=== PATIENT | female | born 1945 | race Caucasian/White ===

== ENCOUNTER 2016-09-19 09:17 | Day surgery (SDC) | payer OTHER ==
[2016-09-19] MEDS ORDERED: D5 LR 1000 ML 1,000 ML IV ONE (09:50)
[2016-09-19] MEDS ORDERED: DIPRIVAN VIAL 20 ML ONE (11:05)
[2016-09-19 14:17] VITALS: BP 138/70
== END 2016-09-19 11:40 | disposition home or self-care (01) ==
LOC: SURG1 09:17
PROVIDERS: ATTEND Internal Medicine Gastroenterology
PROC: 0DB88ZX Excision of Small Intestine, Via Natural or Artificial Opening Endoscopic, Diagnostic (ICD-10-PCS; principal; 2016-09-19 12:30)
PROC: 0DB68ZX Excision of Stomach, Via Natural or Artificial Opening Endoscopic, Diagnostic (ICD-10-PCS; principal; 2016-09-19 12:30)
PROC: 0DJ08ZZ Inspection of Upper Intestinal Tract, Via Natural or Artificial Opening Endoscopic (ICD-10-PCS; principal; 2016-09-19 12:30)
PROC: 0D757ZZ Dilation of Esophagus, Via Natural or Artificial Opening (ICD-10-PCS; principal; 2016-09-19 12:30)
DX: R13.19 Other dysphagia (principal); R10.13 Epigastric pain; K20.8 Other esophagitis; K31.89 Other diseases of stomach and duodenum; K22.2 Esophageal obstruction; K22.4 Dyskinesia of esophagus
CPT/HCPCS: 99100; A4217; J3490; J7120

== ENCOUNTER → 2017-03-14 | Outpatient (CLI) | payer OTHER ==
--- NOTE | 2017-03-14 13:56 | CT ---
HISTORY: Headaches, unsteady gait common dizziness. Patient states she was in a rectus pes Friday. Rubens segal states [facility] Patient has bruising to her forehead region. Study: CT brain without contrast Comparison: No priors Technique: Multiple axial images of the brain were obtained from the skull base to the vertex without administra tion of IV contrast. Coronal and sagittal images are also reviewed. Dose reduction techniques utilize d automatic exposure control. Findings: No acute intraparenchymal hemorrhage or mass can be identified. No extra-axial fluid collections are seen. No alteration in the attenuation of the brain parenchyma can be identified to suggest acute o r subacute ischemic change. The ventricular system is symmetric and nondilated. There is chronic pe riventricular white matter disease observed and age-appropriate generalized atrophy. IMPRESSION: 1. No acute intracranial process can be identified. 2. Chronic periventricular white matter disease likely on the basis of small vessel ischemic change. 3. Age-appropriate atrophic changes are seen. Reported By:
== END | disposition home or self-care (01) | DRG 103 ==
LOC: RAD 12:41
PROVIDERS: ATTEND Nurse Practitioner Family
DX: R51 Headache (principal); S09.8XXA Other specified injuries of head, initial encounter; X58.XXXA Exposure to other specified factors, initial encounter; R26.89 Other abnormalities of gait and mobility; R42 Dizziness and giddiness; H53.8 Other visual disturbances
CPT/HCPCS: 70450

== ENCOUNTER 2017-12-01 11:45 | Observation (INO) ==
[2017-12-01 15:19] VITALS: BMI 25.9
[2017-12-01 15:22] LABS: BASOPHILS # (AUTO) 0.1 X10^3/uL (0.0-0.1); EOSINOPHILS # (AUTO) 0.2 x10^3/uL (0.0-0.2); EOSINOPHILS % (AUTO) 2.5 % (0.9-2.9); HEMATOCRIT 38.4 % (36.0-47.0); HEMOGLOBIN 12.9 g/dL (12.0-16.0); LYMPHOCYTES # (AUTO) 2.6 X10^3/uL (1.3-2.9); LYMPHOCYTES % (AUTO) 36.4 % (21.0-51.0); MEAN CORPUSCULAR HEMOGLOBIN 26.9 pg (27.0-34.0); MEAN CORPUSCULAR HGB CONC 33.6 g/dL (33.0-35.0); MEAN CORPUSCULAR VOLUME 80.2 fL (80.0-100.0); MEAN PLATELET VOLUME 7.6 fL (7.4-11.0); MONOCYTES # (AUTO) 0.6 x10^3/uL (0.3-0.8); MONOCYTES % (AUTO) 8.4 % (0.0-13.0); NEUTROPHILS # (AUTO) 3.6 x10^3/uL (2.2-4.8); NEUTROPHILS % (AUTO) 51.7 % (42.0-75.0); PLATELET COUNT 204 X10^3/uL (150.0-450.0); RED BLOOD COUNT 4.79 X10^6/uL (3.5-5.4); RED CELL DISTRIBUTION WIDTH 15.5 % (11.6-16.5)
[2017-12-01] MEDS: ASPIRIN EC 81 MG PO SCH (15:39)
[2017-12-01] MEDS: PROTONIX INJ 40 MG VIAL IVP SCH ×2 (15:39→21:18)
[2017-12-01] MEDS: NS 1000 ML 1,000 ML IV SCH (15:40)
[2017-12-01 15:45] LABS: ALANINE AMINOTRANSFERASE 22 Units/L (12-78); ALBUMIN 3.6 g/dL (3.4-5.0); ALKALINE PHOSPHATASE 63 Units/L (46-116); AMYLASE 36 Units/L (25-115); ASPARTATE AMINO TRANSFERASE 40 Units/L (15-37); BLOOD UREA NITROGEN 11 mg/dL (7-18); CALCIUM 8.4 mg/dL (8.5-10.1); CARBON DIOXIDE 25.6 mmol/L (21-32); CHLORIDE 106 mmol/L (98-107); CKMB % 0.7 % (<4); CREATINE KINASE 178 Units/L (26-192); CREATINE KINASE MB 1.3 ng/mL (0-4.0); CREATININE 1.03 mg/dL (0.55-1.02); LIPASE 96 Units/L (73-393); SODIUM 142 mmol/L (136-145); TOTAL PROTEIN 7.4 g/dL (6.4-8.2); TROPONIN I < 0.02 ng/mL (0-1.5); eGFR NON BLACK RACES 56 (>60)
--- NOTE | 2017-12-01 16:23 | RAD ---
HISTORY: Chest pain Study: Single view of the chest. Comparison: None. Findings: The cardiomediastinal silhouette is normal. No focal consolidations, pleural effusions or pneumothora x. Osseous structures demonstrate no acute abnormality. IMPRESSION: 1. No acute cardiopulmonary process. Reported By:
[2017-12-01 17:26] LABS: BILIRUBIN,URINE NEGATIVE (NEGATIVE); BLOOD/HEMOGLOBIN,URINE NEGATIVE (NEGATIVE); GLUCOSE, URINE NEGATIVE (NEGATIVE); KETONES,URINE NEGATIVE (NEGATIVE); LEUKOCYTE ESTERASE ,URINE 2+ (NEGATIVE); NITRITES,URINE NEGATIVE (NEGATIVE); PROTEIN,URINE NEGATIVE (NEGATIVE); UROBILINOGEN,URINE NORMAL (NORMAL)
[2017-12-01 17:35] LABS: APPEARANCE,URINE CLEAR (CLEAR); BACTERIA,URINE NEGATIVE /HPF (NEGATIVE); COLOR,URINE YELLOW (YELLOW); RBC,URINE 0-2 /HPF (NONE SEEN); SQUAMOUS EPITHELIAL CELL,UR RARE /HPF (NEGATIVE)
[2017-12-01 17:36] LABS: MUCUS,URINE RARE /HPF (NEGATIVE)
[2017-12-01 19:46] LABS: CKMB % 0.7 % (<4); CREATINE KINASE 166 Units/L (26-192); CREATINE KINASE MB 1.1 ng/mL (0-4.0); TROPONIN I < 0.02 ng/mL (0-1.5)
[2017-12-01] MEDS ORDERED: CRESTOR TAB 10 MG PO SCH (21:00)
[2017-12-01] MEDS ORDERED: NEURONTIN CAP 100 MG PO SCH (21:00)
[2017-12-01] MEDS ORDERED: SINGULAIR TAB 10 MG PO SCH (21:00)
[2017-12-01] MEDS ORDERED: AMBIEN PO SCH (21:00)
[2017-12-01] MEDS: XANAX PO SCH ×2 (21:18→21:19)
[2017-12-01 23:26] LABS: CKMB % 0.7 % (<4); CREATINE KINASE 152 Units/L (26-192); CREATINE KINASE MB < 1.0 ng/mL (0-4.0); TROPONIN I < 0.02 ng/mL (0-1.5)
[2017-12-02] MEDS: NS 1000 ML 1,000 ML IV SCH (03:38)
[2017-12-02 05:56] LABS: BASOPHILS # (AUTO) 0.1 X10^3/uL (0.0-0.1); BASOPHILS % (AUTO) 1.1 % (0.2-1.0); EOSINOPHILS # (AUTO) 0.1 x10^3/uL (0.0-0.2); EOSINOPHILS % (AUTO) 2.6 % (0.9-2.9); HEMATOCRIT 35.5 % (36.0-47.0); HEMOGLOBIN 11.9 g/dL (12.0-16.0); LYMPHOCYTES # (AUTO) 2.1 X10^3/uL (1.3-2.9); MEAN CORPUSCULAR HEMOGLOBIN 26.8 pg (27.0-34.0); MEAN CORPUSCULAR HGB CONC 33.6 g/dL (33.0-35.0); MEAN CORPUSCULAR VOLUME 79.9 fL (80.0-100.0); MEAN PLATELET VOLUME 7.7 fL (7.4-11.0); MONOCYTES # (AUTO) 0.4 x10^3/uL (0.3-0.8); MONOCYTES % (AUTO) 8.2 % (0.0-13.0); NEUTROPHILS # (AUTO) 2.3 x10^3/uL (2.2-4.8); NEUTROPHILS % (AUTO) 46.1 % (42.0-75.0); PLATELET COUNT 185 X10^3/uL (150.0-450.0); RED BLOOD COUNT 4.44 X10^6/uL (3.5-5.4); RED CELL DISTRIBUTION WIDTH 15.5 % (11.6-16.5)
[2017-12-02 06:01] LABS: ALANINE AMINOTRANSFERASE 15 Units/L (12-78); ALBUMIN 3.3 g/dL (3.4-5.0); ALKALINE PHOSPHATASE 56 Units/L (46-116); ASPARTATE AMINO TRANSFERASE 13 Units/L (15-37); BLOOD UREA NITROGEN 11 mg/dL (7-18); CALCIUM 7.9 mg/dL (8.5-10.1); CHLORIDE 108 mmol/L (98-107); COR CA(FOR HYPOALB) 8.5 mg/dL (8.5-10.1); CREATININE 1.03 mg/dL (0.55-1.02); SODIUM 144 mmol/L (136-145); TOTAL PROTEIN 6.6 g/dL (6.4-8.2); eGFR NON BLACK RACES 56 (>60)
[2017-12-02] MEDS ORDERED: FOLIC ACID TAB 1 MG PO SCH (09:00)
[2017-12-02] MEDS: ASPIRIN EC 81 MG PO SCH (09:00)
[2017-12-02] MEDS: XANAX PO SCH ×2 (09:00→10:10)
[2017-12-02] MEDS ORDERED: ROCEPHIN VIAL 1 GRAM 1 G in NS 100 ML IV + SPIKE MINIBAG* 100 ML IV SCH (09:00)
[2017-12-02] MEDS: PROTONIX INJ 40 MG VIAL IVP SCH (09:00)
[2017-12-02] MEDS ORDERED: SYNTHROID 100 mcg TAB PO SCH (09:00)
[2017-12-02] MEDS ORDERED: TENORMIN PO SCH (09:00)
[2017-12-02 09:55] LABS: CHOL/HDL RATIO 5.9 (0.0-5.0)
[2017-12-02 10:07] VITALS: BP 127/57
--- NOTE | 2017-12-24 00:56 | DR.CARTERS ---
Short Stay Summary - Short Stay Summary for: Short Stay Summary for Date of:: 12/02/17 - Admission Date Date of Admission: 12/01/17 - Discharge Date Discharge Date: 12/02/17 - Admission Diagnoses (1) Chest pain Status: Acute (2) Shortness of breath Status: Acute (3) Essential hypertension Status: Chronic (4) Gastroesophageal reflux disease Status: Chronic - Hospital Course Hospital Course: Ms. Manriquez presented to the hospital as a direct admission with reports of chest pain. Patient reported severe back pain and elevated blood pressure as well. Blood pressure reported at 212/85. Patient admitted to the hospital and placed on continuous satellite project site monitor and NIBP. We obtained serial cardiac enzymes and EKG's. Medical History: Hyperlipidemia, Hypertension, Bronchitis, Gerd, Diverticulitis, UTI's, Back Pain, Hypothyroidism, Anxiety. Medications: Aspirin Ec 81mg po daily, Protonix 40mg IV BID, NS @80ml/hr, Heplock Flush TID, Xanax 0.5mg po BID, Neurontin 200mg po HS, Singulair 10mg po HS, Crestor 20mg po HS, Ambien 10mg po HS. Abnormal Labs: MCH 26.9, Creatinine 1.03, GFR non 56 , Calcium 8.4, AST 40, A/G ratio 0.9. Chest X-Ray: No acute cardiopulmonary process. On day two, patient denied chest pain or shortness of breath. Blood pressure was 127/57. No acute distress was noted. Cardiac enzymes and ekg's wnl. On examination, lungs clear; heart rate regular in rhythm. We planned for discharge. Instructions for medications and follow up were discussed with patient and family, both voiced understanding. Patient discharged home in stable condition with family. - Discharge Medications Discharge Medications: Home Medication List levothyroxine 100 mcg PO DAILY 12/01/17 [History] montelukast 10 mg PO HS 12/01/17 [History] pantoprazole 40 mg PO BID 12/01/17 [History] aspirin [Ecotrin] 324 mg PO DAILY #30 tab 12/02/17 [Rx] cefdinir 300 mg PO Q12H #20 cap 12/02/17 [Rx] rosuvastatin [Crestor] 20 mg PO HS #30 tab 12/02/17 [Rx] Folic Acid 1 mg PO DAILY 12/16/12 atenolol 12.5 mg PO DAILY 12/16/12 zolpidem 10 mg PO HS 12/16/12 alprazolam [Xanax] 1 tab PO BID 07/24/16 gabapentin 2 cap PO HS 07/24/16 Prescriptions: aspirin [Ecotrin] Gabriel Marti cefdinir Gabriel Marti rosuvastatin [Crestor] Gabriel Marti - Discharge Plan Disposition: HOME, SELF-CARE Condition: Stable Prescriptions: aspirin [Ecotrin] 324 mg PO DAILY #30 tab cefdinir 300 mg PO Q12H #20 cap rosuvastatin [Crestor] 20 mg PO HS #30 tab - Follow up/Referrals Follow up/Referrals: BOBBY GALICIA [Primary Care Provider] - 12/09/17 10:00 am - Instructions Instructions: Urinary Tract Infection, Adult, [id number], Nonspecific Chest Pain, [place]-no-Wxet, Hypertension, [id number] Additional Instructions: DIET TOLERATED. ACTIVITY TOLERATED. Forms: Patient Portal
== END 2017-12-02 13:27 | disposition home or self-care (01) ==
LOC: MED/SURG
PROVIDERS: ADMIT Internal Medicine; ATTEND Internal Medicine
DX: I10 Essential (primary) hypertension; R07.89 Other chest pain; N39.0 Urinary tract infection, site not specified; R06.02 Shortness of breath
CPT/HCPCS: 36415; 71010; 71045; 80053; 80061; 81001; 82150; 82550; 82553; 83690; 84484; 85025; 86677; 93005; 94760; A4216; A4222; C9113; G0378; J0696; J7030; J7050

== ENCOUNTER 2018-02-04 11:14 | Inpatient (IN) ==
[2018-02-04 13:09] LABS: BASOPHILS % (AUTO) 0.7 % (0.2-1.0); EOSINOPHILS % (AUTO) 0.6 % (0.9-2.9); HEMATOCRIT 35.5 % (36.0-47.0); HEMOGLOBIN 11.8 g/dL (12.0-16.0); LYMPHOCYTES # (AUTO) 0.8 X10^3/uL (1.3-2.9); LYMPHOCYTES % (AUTO) 12.9 % (21.0-51.0); MEAN CORPUSCULAR HEMOGLOBIN 26.9 pg (27.0-34.0); MEAN CORPUSCULAR HGB CONC 33.4 g/dL (33.0-35.0); MEAN CORPUSCULAR VOLUME 80.7 fL (80.0-100.0); MEAN PLATELET VOLUME 7.5 fL (7.4-11.0); MONOCYTES # (AUTO) 0.5 x10^3/uL (0.3-0.8); MONOCYTES % (AUTO) 7.8 % (0.0-13.0); NEUTROPHILS # (AUTO) 4.8 x10^3/uL (2.2-4.8); PLATELET COUNT 151 X10^3/uL (150.0-450.0); RED BLOOD COUNT 4.39 X10^6/uL (3.5-5.4); RED CELL DISTRIBUTION WIDTH 15.4 % (11.6-16.5); WHITE BLOOD COUNT 6.2 X10^3/uL (3.6-10.0)
[2018-02-04 13:22] LABS: ALANINE AMINOTRANSFERASE 20 Units/L (12-78); ALBUMIN 3.3 g/dL (3.4-5.0); ALKALINE PHOSPHATASE 64 Units/L (46-116); ASPARTATE AMINO TRANSFERASE 22 Units/L (15-37); BLOOD UREA NITROGEN 11 mg/dL (7-18); CALCIUM 8.7 mg/dL (8.5-10.1); CHLORIDE 98 mmol/L (98-107); COR CA(FOR HYPOALB) 9.3 mg/dL (8.5-10.1); COR NA(FOR HYPERGLY) 132 mmol/L (136-145); CREATININE 1.06 mg/dL (0.55-1.02); SODIUM 132 mmol/L (136-145); TOTAL PROTEIN 7.1 g/dL (6.4-8.2); eGFR NON BLACK RACES 54 (>60)
[2018-02-04 13:43] VITALS: BMI 26.6
--- NOTE | 2018-02-04 14:14 | RAD ---
Exam: Chest two views History: 72-year-old female with cough and shortness of breath Comparison: Previous chest radiograph from 12/01/2017. Findings: Overall heart size and pulmonary vasculature are normal. There has been interval development of paren chymal opacity in the left perihilar and basilar region. This may be related atelectasis or possible infiltrate. Remainder the lungs are clear. No significant effusion on either side. Bony thorax is unr emarkable. Impression: Interval development of left perihilar and basilar opacity probably related to either atelectasis or developing pneumonia Reported By:
[2018-02-04] MEDS ORDERED: NS 1/2 1000 ML IV 1,000 ML IV ONE (14:37)
[2018-02-04] MEDS ORDERED: SALINE 3% 15 ML NEB TX ONE (14:49)
[2018-02-04] MEDS: NS 1/2 1000 ML IV 1,000 ML IV SCH (14:51)
[2018-02-04] MEDS: ZOSYN VIAL 4.5 GRAMS IV SCH ×2 (14:51→21:38)
[2018-02-04] MEDS: ROBITUSSIN DM PO SCH ×3 (14:51→21:37)
[2018-02-04] MEDS: ZOFRAN INJ 4 MG VIAL IVP PRN (14:55)
[2018-02-04] MEDS ORDERED: SALINE 3% 15 ML NEB TX NEB ONE (14:58)
[2018-02-04] MEDS ORDERED: NS 100 ML IV + SPIKE MINIBAG* 100 ML IV ONE ×2 (15:00→21:01)
[2018-02-04] MEDS: DUONEB 0.5 MG/3 MG NEB SCH ×2 (17:15→21:30)
[2018-02-04] MEDS: TYLENOL 325 MG TAB PO PRN (17:23)
[2018-02-04] MEDS: TUSSIONEX PENNKINETIC SUSP PO PRN (19:19)
[2018-02-05] MEDS: DUONEB 0.5 MG/3 MG NEB SCH ×6 (00:44→20:29)
[2018-02-05] MEDS ORDERED: NS 1/2 1000 ML IV 1,000 ML IV ONE ×2 (01:51→16:40)
[2018-02-05] MEDS: NS 1/2 1000 ML IV 1,000 ML IV SCH ×2 (01:56→16:57)
[2018-02-05] MEDS ORDERED: NS 100 ML IV + SPIKE MINIBAG* 100 ML IV ONE ×3 (05:14→21:25)
[2018-02-05] MEDS: ZOSYN VIAL 4.5 GRAMS IV SCH ×3 (05:30→23:51)
--- NOTE | 2018-02-05 06:16 | RAD ---
HISTORY: Shortness of breath Study: Chest AP portable Comparison: 02/04/2018 Findings: The heart is within normal limits in size. The pushpa are normal. The aorta is calcified. The right brittany g is clear. Perihilar infiltrate is present on the left likely representing subsegmental atelectasis and pneumonia. It is somewhat improved when compared with the prior examination. No pleural effusions are identified. The bony thorax is unremarkable. IMPRESSION: Slight improvement left perihilar infiltrate/subsegmental atelectasis Reported By:
[2018-02-05 06:36] LABS: BASOPHILS % (AUTO) 0.8 % (0.2-1.0); EOSINOPHILS # (AUTO) 0.1 x10^3/uL (0.0-0.2); EOSINOPHILS % (AUTO) 1.7 % (0.9-2.9); HEMATOCRIT 34.5 % (36.0-47.0); HEMOGLOBIN 11.7 g/dL (12.0-16.0); LYMPHOCYTES # (AUTO) 0.6 X10^3/uL (1.3-2.9); LYMPHOCYTES % (AUTO) 15.7 % (21.0-51.0); MEAN CORPUSCULAR HEMOGLOBIN 27.2 pg (27.0-34.0); MEAN CORPUSCULAR HGB CONC 33.9 g/dL (33.0-35.0); MEAN CORPUSCULAR VOLUME 80.3 fL (80.0-100.0); MEAN PLATELET VOLUME 7.9 fL (7.4-11.0); MONOCYTES # (AUTO) 0.3 x10^3/uL (0.3-0.8); MONOCYTES % (AUTO) 7.6 % (0.0-13.0); NEUTROPHILS # (AUTO) 2.8 x10^3/uL (2.2-4.8); NEUTROPHILS % (AUTO) 74.2 % (42.0-75.0); PLATELET COUNT 139 X10^3/uL (150.0-450.0); RED CELL DISTRIBUTION WIDTH 15.1 % (11.6-16.5); WHITE BLOOD COUNT 3.7 X10^3/uL (3.6-10.0)
[2018-02-05 07:00] LABS: ALANINE AMINOTRANSFERASE 21 Units/L (12-78); ALBUMIN 3.1 g/dL (3.4-5.0); ALKALINE PHOSPHATASE 64 Units/L (46-116); ASPARTATE AMINO TRANSFERASE 35 Units/L (15-37); BLOOD UREA NITROGEN 9 mg/dL (7-18); CALCIUM 8.5 mg/dL (8.5-10.1); CARBON DIOXIDE 26.8 mmol/L (21-32); CHLORIDE 99 mmol/L (98-107); COR CA(FOR HYPOALB) 9.2 mg/dL (8.5-10.1); CREATININE 1.05 mg/dL (0.55-1.02); SODIUM 133 mmol/L (136-145); TOTAL PROTEIN 7.1 g/dL (6.4-8.2); eGFR NON BLACK RACES 55 (>60)
[2018-02-05] MEDS: TYLENOL 325 MG TAB PO PRN ×3 (08:03→23:51)
[2018-02-05] MEDS: ROBITUSSIN DM PO SCH ×4 (08:45→21:22)
[2018-02-05] MEDS ORDERED: FOLIC ACID 1 MG PO SCH (09:45)
[2018-02-05] MEDS ORDERED: LEVOTHYROXINE 100 MCG PO SCH (09:45)
[2018-02-05] MEDS ORDERED: NEURONTIN CAP 100 MG PO SCH (10:00)
[2018-02-05] MEDS: TUSSIONEX PENNKINETIC SUSP PO PRN (10:04)
[2018-02-05] MEDS: SYNTHROID 100 mcg TAB PO SCH (11:05)
[2018-02-05] MEDS: PROTONIX TAB 40 MG PO SCH (11:05)
[2018-02-05] MEDS: TENORMIN PO SCH (11:06)
[2018-02-05] MEDS: FOLIC ACID TAB 1 MG PO SCH (11:07)
[2018-02-05] MEDS: TAMIFLU PO SCH ×2 (11:07→21:23)
[2018-02-05] MEDS: ECOTRIN TAB 325 MG PO SCH (11:08)
[2018-02-05] MEDS: ZOFRAN INJ 4 MG VIAL IVP PRN (19:44)
[2018-02-05] MEDS: NEURONTIN CAP 300 MG PO SCH (21:22)
[2018-02-05] MEDS: SINGULAIR TAB 10 MG PO SCH (21:23)
[2018-02-06] MEDS: DUONEB 0.5 MG/3 MG NEB SCH ×6 (00:56→20:25)
[2018-02-06] MEDS ORDERED: NS 1/2 1000 ML IV 1,000 ML IV ONE ×2 (04:54→18:11)
[2018-02-06] MEDS ORDERED: NS 100 ML IV + SPIKE MINIBAG* 100 ML IV ONE ×2 (04:55→13:32)
[2018-02-06] MEDS: ZOSYN VIAL 4.5 GRAMS IV SCH ×3 (05:19→21:02)
[2018-02-06] MEDS: NS 1/2 1000 ML IV 1,000 ML IV SCH ×2 (05:19→05:29)
--- NOTE | 2018-02-06 06:09 | RAD ---
HISTORY: Shortness of breath Study: Chest AP portable Comparison: 02/05/2018 Findings: The heart remains within normal limits in size. The pushpa are normal. New increased density is present in the right lung apex which could be due to developing subsegmental atelectasis or infiltrate. Ther e is no significant change in the left perihilar infiltrate being followed. No pleural effusions are identified. The bony thorax is unremarkable IMPRESSION: New right upper lobe density likely representing infiltrate versus subsegmental atelectasis No change left perihilar infiltrate Reported By:
[2018-02-06 06:18] LABS: BASOPHILS % (AUTO) 0.7 % (0.2-1.0); EOSINOPHILS % (AUTO) 0.7 % (0.9-2.9); HEMATOCRIT 30.2 % (36.0-47.0); HEMOGLOBIN 10.3 g/dL (12.0-16.0); LYMPHOCYTES # (AUTO) 0.5 X10^3/uL (1.3-2.9); MEAN CORPUSCULAR HEMOGLOBIN 27.3 pg (27.0-34.0); MEAN CORPUSCULAR HGB CONC 34.2 g/dL (33.0-35.0); MEAN PLATELET VOLUME 8.4 fL (7.4-11.0); MONOCYTES # (AUTO) 0.2 x10^3/uL (0.3-0.8); MONOCYTES % (AUTO) 7.3 % (0.0-13.0); NEUTROPHILS # (AUTO) 2.6 x10^3/uL (2.2-4.8); NEUTROPHILS % (AUTO) 76.3 % (42.0-75.0); PLATELET COUNT 117 X10^3/uL (150.0-450.0); RED BLOOD COUNT 3.78 X10^6/uL (3.5-5.4); WHITE BLOOD COUNT 3.3 X10^3/uL (3.6-10.0)
[2018-02-06 06:39] LABS: ALANINE AMINOTRANSFERASE 23 Units/L (12-78); ALBUMIN 2.5 g/dL (3.4-5.0); ALKALINE PHOSPHATASE 63 Units/L (46-116); ASPARTATE AMINO TRANSFERASE 53 Units/L (15-37); BLOOD UREA NITROGEN 7 mg/dL (7-18); CALCIUM 8.2 mg/dL (8.5-10.1); CARBON DIOXIDE 28.2 mmol/L (21-32); CHLORIDE 102 mmol/L (98-107); COR CA(FOR HYPOALB) 9.4 mg/dL (8.5-10.1); CREATININE 0.94 mg/dL (0.55-1.02); SODIUM 136 mmol/L (136-145); TOTAL PROTEIN 6.1 g/dL (6.4-8.2); eGFR NON BLACK RACES > 60 (>60)
[2018-02-06] MEDS: SYNTHROID 100 mcg TAB PO SCH (07:06)
[2018-02-06] MEDS: TUSSIONEX PENNKINETIC SUSP PO PRN ×2 (07:07→20:30)
[2018-02-06] MEDS: TYLENOL 325 MG TAB PO PRN (08:54)
[2018-02-06] MEDS: TENORMIN PO SCH (08:55)
[2018-02-06] MEDS: ECOTRIN TAB 325 MG PO SCH (08:55)
[2018-02-06] MEDS: PROTONIX TAB 40 MG PO SCH (08:55)
[2018-02-06] MEDS: FOLIC ACID TAB 1 MG PO SCH (08:55)
[2018-02-06] MEDS: ROBITUSSIN DM PO SCH ×4 (08:56→21:00)
[2018-02-06] MEDS: TAMIFLU PO SCH ×2 (08:56→21:01)
[2018-02-06] MEDS: SOLU-Medrol 40 MG VIAL IVP SCH ×3 (11:23→21:02)
[2018-02-06] MEDS: TYLENOL 325 MG TAB PO SCH ×2 (13:34→21:01)
--- NOTE | 2018-02-06 16:17 | DR.UPDATE ---
H&P Update History and Physical Update: WAS SEEN IN THE OFFICE TODAY. A H&P WAS COMPLETED PRIOR TO ADMISSION. PATIENT HAS BEEN SEEN AND EXAMINED WITH NO CHANGES NOTED TO H&P. Changes noted: NO Yes with the following:
--- NOTE | 2018-02-06 16:19 | PCM.PROG ---
Progress Note - Progress Note for Day of Date of Exam: 02/05/18 - Subjective Subjective: WAS ADMITTED FOR TREATMENT OF PNEUMONIA. TODAY, SHE IS ALERT AND ORIENTED, LYING IN BED ON MORNING ROUNDS. SHE CONTINUES WITH COMPLAINTS OF COUGH, SHORTNESS OF BREATH, FEVER, AND GENERALIZED WEAKNESS. STAFF REPORTS THAT TEMPERATURE REACHED 101.2 THROUGHOUT THE NIGHT. ON EXAMINATION, HEART IS REGULAR IN RATE AND RHYTHYM. BILATERAL LUNGS ARE NOTED WITH SCATTERED WHEEZING AND RHONCHI THROUGHOUT. ABDOMEN IS ROUND, SOFT, AND NON- TENDER WITH NORMAL BOWEL SOUNDS NOTED IN ALL QUADRANTS. HER VITALS THIS MORNING ARE 101.1-100-20-94%-138/64. LABS WERE OBTAINED. ABNORMAL LAB VALUES INCLUDE THE FOLLOWING: HGB 11.7, HCT 34.5, SODIUM 133, CREATININE 1.05, TOTAL BILIRUBIN 1.20, ALBUMIN 3.1. SPUTUM AND BLOOD CULTURES ARE PENDING. A CHEST XRAY WAS OBTAINED AND REVEALED: Slight improvement left perihilar infiltrate/ subsegmental atelectasis. TODAY, WE WILL START TAMIFLU 75MG PO BID. OTHERWISE, WE WILL CONTINUE IV ANTIBIOTICS, RESPIRATORY TREATMENTS, AND CURRENT PLAN OF CARE. WE PLAN TO FOLLOW UP WITH AM LABS AND CONTINUE TO MONITOR PATIENT. - Past Medical Family Social History Past Med/Fam/Surg Hx: No changes since H&P Allergies: Allergies levofloxacin Adverse Reaction (Verified 12/01/17 14:50) - Review of Systems ROS: No change since H&P - Vital Signs and I&O's Vital Signs: Temperature 98.7 F Pulse Rate [Right Brachial] 87 Pulse Rate 97 Respiratory Rate 20 Blood Pressure [Right Arm] 123/60 Blood Pressure [Left Arm] 128/60 Blood Pressure 127/57 O2 Sat by Pulse Oximetry 91 Intake and Output: Intake & Output 02/04/18 02/05/18 02/06/18 02/07/18 11:59 11:59 11:59 11:59 Intake Total 570 / 570 3030 / 3030 320 / 320 Output Total 0 / 0 Balance 570 / 570 3030 / 3030 320 / 320 - Physical Exam Oriented: Normal Eyes: Normal Ear: Normal Nose: Normal Throat: Normal Respiratory: Generalized, Wheezes, Rhonchi Cardiovascular: Normal : Normal Auscultation: Bowel Sounds: Normal Palpation: Normal Tenderness: Normal Skin: Normal Musculoskeletal: Normal Mood Description: Calm Affect: Normal Speech Pattern: Clear, Appropriate - Laboratory and Diagnostics Result Diagrams: 02/06/18 05:10 02/06/18 05:10 Labs: 02/04/18 12:53 Blood Blood Culture - Preliminary 02/04/18 12:46 Blood Blood Culture - Preliminary 02/04/18 15:26 Sputum - Expectorated Sputum Sputum Culture - Final 02/04/18 15:26 Sputum - Expectorated Sputum - Final Laboratory WBC 3.3 X10^3/uL (3.6-10.0) L 02/06/18 05:10 RBC 3.78 X10^6/uL (3.5-5.4) 02/06/18 05:10 Hgb 10.3 g/dL (12.0-16.0) L 02/06/18 05:10 Hct 30.2 % (36.0-47.0) L 02/06/18 05:10 MCV 80.0 fL (80.0-100.0) 02/06/18 05:10 MCH 27.3 pg (27.0-34.0) 02/06/18 05:10 MCHC 34.2 g/dL (33.0-35.0) 02/06/18 05:10 RDW 15.0 % (11.6-16.5) 02/06/18 05:10 Plt Count 117 X10^3/uL (150.0-450.0) L 02/06/18 05:10 MPV 8.4 fL (7.4-11.0) 02/06/18 05:10 Neut % (Auto) 76.3 % (42.0-75.0) H 02/06/18 05:10 Lymph % (Auto) 15.0 % (21.0-51.0) L 02/06/18 05:10 [place] % (Auto) 7.3 % (0.0-13.0) 02/06/18 05:10 Eos % (Auto) 0.7 % (0.9-2.9) L 02/06/18 05:10 Baso % (Auto) 0.7 % (0.2-1.0) 02/06/18 05:10 Neut # (Auto) 2.6 x10^3/uL (2.2-4.8) 02/06/18 05:10 Lymph # (Auto) 0.5 X10^3/uL (1.3-2.9) L 02/06/18 05:10 [place] # (Auto) 0.2 x10^3/uL (0.3-0.8) L 02/06/18 05:10 Eos # (Auto) 0.0 x10^3/uL (0.0-0.2) 02/06/18 05:10 Baso # (Auto) 0.0 X10^3/uL (0.0-0.1) 02/06/18 05:10 Absolute Nucleated RBC 0.1 /100WBC 02/06/18 05:10 Sodium 136 mmol/L (136-145) 02/06/18 05:10 Corrected Sodium TNP 02/06/18 05:10 Potassium 3.2 mmol/L (3.5-5.1) L 02/06/18 05:10 Chloride 102 mmol/L (98-107) 02/06/18 05:10 Carbon Dioxide 28.2 mmol/L (21-32) 02/06/18 05:10 BUN 7 mg/dL (7-18) 02/06/18 05:10 Creatinine 0.94 mg/dL (0.55-1.02) 02/06/18 05:10 Est GFR (MDRD) Af Amer > 60 (>60) 02/06/18 05:10 Est GFR (MDRD) Non-Af > 60 (>60) 02/06/18 05:10 Glucose 98 mg/dL (65-99) 02/06/18 05:10 Calcium 8.2 mg/dL (8.5-10.1) L 02/06/18 05:10 Corrected Calcium 9.4 mg/dL (8.5-10.1) 02/06/18 05:10 Total Bilirubin 1.10 mg/dL (0.2-1.0) H 02/06/18 05:10 AST 53 Units/L (15-37) H 02/06/18 05:10 ALT 23 Units/L (12-78) 02/06/18 05:10 Alkaline Phosphatase 63 Units/L (46-116) 02/06/18 05:10 Total Protein 6.1 g/dL (6.4-8.2) L 02/06/18 05:10 Albumin 2.5 g/dL (3.4-5.0) L 02/06/18 05:10 Globulin 3.6 g/dL (2.5-4.5) 02/06/18 05:10 Albumin/Globulin Ratio 0.7 Ratio (1.1-2.1) L 02/06/18 05:10 Influenza Type A (PCR) Negative (NEGATIVE) 02/04/18 15:26 Influenza Type B (PCR) Negative (NEGATIVE) 02/04/18 15:26 - Plan (1) Pneumonia Status: Acute Qualifiers: Pneumonia type: due to unspecified organism Laterality: left Lung location: unspecified part of lung Qualified Code(s): J18.9 - Pneumonia, unspecified organism Plan: PNEUMONIA PROTOCOL WITH IV ANTIBIOTICS AND RESPIRATORY TREATMENTS, TAMIFLU 75MG PO BID, CONTINUE TO MONITOR
[2018-02-06] MEDS ORDERED: COLACE CAP 100 MG PO PRN (16:48)
[2018-02-06] MEDS: NEURONTIN CAP 300 MG PO SCH (20:59)
[2018-02-06] MEDS: MILK OF MAGNESIA PO SCH (20:59)
[2018-02-06] MEDS: SINGULAIR TAB 10 MG PO SCH (21:00)
--- NOTE | 2018-02-06 21:29 | PCM.PROG ---
Progress Note - Progress Note for Day of Date of Exam: 02/06/18 - Subjective Subjective: WAS ADMITTED FOR TREATMENT OF PNEUMONIA. TODAY, SHE IS ALERT AND ORIENTED, LYING IN BED ON MORNING ROUNDS. SHE REPORTS COMPLAINTS OF INCREASED SHORTNESS OF BREATH, COUGH, FEVER, AND WEAKNESS. SHE CONTINUED WITH FEVER THROUGHOUT THE NIGHT. ON EXAMINATION, HEART IS REGULAR IN RATE AND RHYTHYM. BILATERAL LUNGS ARE NOTED WITH SCATTERED WHEEZING AND RHONCHI THROUGHOUT. ABDOMEN IS ROUND, SOFT, AND NON-TENDER WITH NORMAL BOWEL SOUNDS NOTED IN ALL QUADRANTS. HER VITALS THIS MORNING ARE 100.1-106-22-92%NC-142/67. LABS WERE OBTAINED. ABNORMAL LAB VALUES INCLUDE THE FOLLOWING: WBC 3.3, HGB 10.3 , HCT 30.2, POTASSIUM 3.2, CALCIUM 8.2, TOTAL BILI 1.10, AST 53, TOTAL PROTEIN 6.1, ALBUMIN 2.5. SPUTUM AND BLOOD CULTURES ARE PENDING. A CHEST XRAY WAS OBTAINED AND REVEALED: New right upper lobe density likely representing infiltrate versus subsegmental atelectasis. No change left perihilar infiltrate. TODAY, WE WILL START SOLU-MEDROL 40MG IV Q8H AND TYLENOL 650MG PO TID. OTHERWISE, WE WILL CONTINUE IV ANTIBIOTICS, RESPIRATORY TREATMENTS, AND CURRENT PLAN OF CARE. WE PLAN TO FOLLOW UP WITH AM LABS AND CONTINUE TO MONITOR PATIENT. - Past Medical Family Social History Past Med/Fam/Surg Hx: No changes since H&P Allergies: Allergies levofloxacin Adverse Reaction (Verified 12/01/17 14:50) - Review of Systems ROS: No change since H&P - Vital Signs and I&O's Vital Signs: Temperature 98.2 F Pulse Rate [Right Brachial] 80 Pulse Rate 77 Respiratory Rate 18 Blood Pressure [Right Arm] 130/64 Blood Pressure [Left Arm] 128/60 Blood Pressure 127/57 O2 Sat by Pulse Oximetry 96 Intake and Output: Intake & Output 02/04/18 02/05/18 02/06/18 02/07/18 11:59 11:59 11:59 11:59 Intake Total 570 / 570 3030 / 3030 320 / 320 Output Total 0 / 0 Balance 570 / 570 3030 / 3030 320 / 320 - Physical Exam Oriented: Normal Eyes: Normal Ear: Normal Nose: Normal Throat: Normal Respiratory: Generalized, Wheezes, Rhonchi Cardiovascular: Normal : Normal Auscultation: Bowel Sounds: Normal Palpation: Normal Tenderness: Normal Skin: Normal Musculoskeletal: Normal Mood Description: Calm Affect: Normal Speech Pattern: Clear, Appropriate - Laboratory and Diagnostics Result Diagrams: 02/06/18 05:10 02/06/18 05:10 Labs: 02/04/18 12:53 Blood Blood Culture - Preliminary 02/04/18 12:46 Blood Blood Culture - Preliminary 02/04/18 15:26 Sputum - Expectorated Sputum Sputum Culture - Final 02/04/18 15:26 Sputum - Expectorated Sputum - Final Laboratory WBC 3.3 X10^3/uL (3.6-10.0) L 02/06/18 05:10 RBC 3.78 X10^6/uL (3.5-5.4) 02/06/18 05:10 Hgb 10.3 g/dL (12.0-16.0) L 02/06/18 05:10 Hct 30.2 % (36.0-47.0) L 02/06/18 05:10 MCV 80.0 fL (80.0-100.0) 02/06/18 05:10 MCH 27.3 pg (27.0-34.0) 02/06/18 05:10 MCHC 34.2 g/dL (33.0-35.0) 02/06/18 05:10 RDW 15.0 % (11.6-16.5) 02/06/18 05:10 Plt Count 117 X10^3/uL (150.0-450.0) L 02/06/18 05:10 MPV 8.4 fL (7.4-11.0) 02/06/18 05:10 Neut % (Auto) 76.3 % (42.0-75.0) H 02/06/18 05:10 Lymph % (Auto) 15.0 % (21.0-51.0) L 02/06/18 05:10 [place] % (Auto) 7.3 % (0.0-13.0) 02/06/18 05:10 Eos % (Auto) 0.7 % (0.9-2.9) L 02/06/18 05:10 Baso % (Auto) 0.7 % (0.2-1.0) 02/06/18 05:10 Neut # (Auto) 2.6 x10^3/uL (2.2-4.8) 02/06/18 05:10 Lymph # (Auto) 0.5 X10^3/uL (1.3-2.9) L 02/06/18 05:10 [place] # (Auto) 0.2 x10^3/uL (0.3-0.8) L 02/06/18 05:10 Eos # (Auto) 0.0 x10^3/uL (0.0-0.2) 02/06/18 05:10 Baso # (Auto) 0.0 X10^3/uL (0.0-0.1) 02/06/18 05:10 Absolute Nucleated RBC 0.1 /100WBC 02/06/18 05:10 Sodium 136 mmol/L (136-145) 02/06/18 05:10 Corrected Sodium TNP 02/06/18 05:10 Potassium 3.2 mmol/L (3.5-5.1) L 02/06/18 05:10 Chloride 102 mmol/L (98-107) 02/06/18 05:10 Carbon Dioxide 28.2 mmol/L (21-32) 02/06/18 05:10 BUN 7 mg/dL (7-18) 02/06/18 05:10 Creatinine 0.94 mg/dL (0.55-1.02) 02/06/18 05:10 Est GFR (MDRD) Af Amer > 60 (>60) 02/06/18 05:10 Est GFR (MDRD) Non-Af > 60 (>60) 02/06/18 05:10 Glucose 98 mg/dL (65-99) 02/06/18 05:10 Calcium 8.2 mg/dL (8.5-10.1) L 02/06/18 05:10 Corrected Calcium 9.4 mg/dL (8.5-10.1) 02/06/18 05:10 Total Bilirubin 1.10 mg/dL (0.2-1.0) H 02/06/18 05:10 AST 53 Units/L (15-37) H 02/06/18 05:10 ALT 23 Units/L (12-78) 02/06/18 05:10 Alkaline Phosphatase 63 Units/L (46-116) 02/06/18 05:10 Total Protein 6.1 g/dL (6.4-8.2) L 02/06/18 05:10 Albumin 2.5 g/dL (3.4-5.0) L 02/06/18 05:10 Globulin 3.6 g/dL (2.5-4.5) 02/06/18 05:10 Albumin/Globulin Ratio 0.7 Ratio (1.1-2.1) L 02/06/18 05:10 Influenza Type A (PCR) Negative (NEGATIVE) 02/04/18 15:26 Influenza Type B (PCR) Negative (NEGATIVE) 02/04/18 15:26 - Plan (1) Pneumonia Status: Acute Qualifiers: Pneumonia type: due to unspecified organism Laterality: left Lung location: unspecified part of lung Qualified Code(s): J18.9 - Pneumonia, unspecified organism Plan: PNEUMONIA PROTOCOL WITH IV ANTIBIOTICS AND RESPIRATORY TREATMENTS, TAMIFLU 75MG PO BID, SOLU-MEDROL 40MG IV TID, CONTINUE TO MONITOR
[2018-02-07] MEDS: DUONEB 0.5 MG/3 MG NEB SCH ×6 (00:44→20:55)
[2018-02-07] MEDS: NS 1/2 1000 ML IV 1,000 ML IV SCH ×2 (02:57→11:18)
[2018-02-07] MEDS ORDERED: NS 100 ML IV + SPIKE MINIBAG* 100 ML IV ONE ×3 (05:13→21:36)
[2018-02-07] MEDS: SOLU-Medrol 40 MG VIAL IVP SCH ×3 (05:29→21:46)
[2018-02-07] MEDS: TYLENOL 325 MG TAB PO SCH ×3 (05:29→21:44)
[2018-02-07] MEDS: ZOSYN VIAL 4.5 GRAMS IV SCH ×3 (05:30→21:46)
[2018-02-07 05:49] LABS: ALANINE AMINOTRANSFERASE 29 Units/L (12-78); ALBUMIN 2.6 g/dL (3.4-5.0); ALKALINE PHOSPHATASE 67 Units/L (46-116); ASPARTATE AMINO TRANSFERASE 54 Units/L (15-37); BLOOD UREA NITROGEN 9 mg/dL (7-18); CALCIUM 8.6 mg/dL (8.5-10.1); CARBON DIOXIDE 29.7 mmol/L (21-32); CHLORIDE 103 mmol/L (98-107); COR CA(FOR HYPOALB) 9.7 mg/dL (8.5-10.1); COR NA(FOR HYPERGLY) 142 mmol/L (136-145); CREATININE 1.06 mg/dL (0.55-1.02); SODIUM 141 mmol/L (136-145); TOTAL PROTEIN 6.4 g/dL (6.4-8.2); eGFR NON BLACK RACES 54 (>60)
[2018-02-07] MEDS ORDERED: NS 1/2 1000 ML IV 1,000 ML IV ONE (05:55)
[2018-02-07] MEDS: SYNTHROID 100 mcg TAB PO SCH (06:03)
[2018-02-07] MEDS ORDERED: K-LYTE EFFERVESCENT PO PRN (06:11)
[2018-02-07] MEDS ORDERED: POTASSIUM CHL 40 MEQ/NS 0.45% 500 ML IV PRN (06:11)
[2018-02-07] MEDS ORDERED: POTASSIUM CHL 60 MEQ/NS 0.45% 500 ML IV PRN (06:11)
[2018-02-07] MEDS ORDERED: MAGNESIUM SULFATE 1 GRAM/100 mL PREMIX 1 GM/100 ML BAG IV PRN (06:11)
[2018-02-07] MEDS ORDERED: POTASSIUM CHLORIDE LIQ 20 MEQ UDC PO PRN (06:11)
[2018-02-07] MEDS ORDERED: K-RIDER 10 MEQ/NS 100 ML 10 MEQ/100 ML BAG IV PRN (06:11)
--- NOTE | 2018-02-07 06:32 | RAD ---
Examination: Portable AP chest History: SOB Comparison reference 02/06/2018 Findings: Stable heart size. There is no change in the mild diffuse infiltrates in right upper lobe and left perihilar distribution. No complicating pneumothorax or developing pleural fluid is noted. Impression: No change since 1 day earlier. Reported By:
[2018-02-07 07:17] LABS: BASOPHILS % (AUTO) 0.3 % (0.2-1.0); HEMATOCRIT 29.1 % (36.0-47.0); LYMPHOCYTES # (AUTO) 0.4 X10^3/uL (1.3-2.9); LYMPHOCYTES % (AUTO) 8.9 % (21.0-51.0); MEAN CORPUSCULAR HEMOGLOBIN 27.2 pg (27.0-34.0); MEAN CORPUSCULAR HGB CONC 34.4 g/dL (33.0-35.0); MEAN PLATELET VOLUME 8.3 fL (7.4-11.0); MONOCYTES # (AUTO) 0.2 x10^3/uL (0.3-0.8); MONOCYTES % (AUTO) 4.3 % (0.0-13.0); NEUTROPHILS % (AUTO) 86.5 % (42.0-75.0); PLATELET COUNT 167 X10^3/uL (150.0-450.0); RED BLOOD COUNT 3.68 X10^6/uL (3.5-5.4); RED CELL DISTRIBUTION WIDTH 15.5 % (11.6-16.5); WHITE BLOOD COUNT 4.7 X10^3/uL (3.6-10.0)
[2018-02-07] MEDS: ECOTRIN TAB 325 MG PO SCH (08:55)
[2018-02-07] MEDS: ROBITUSSIN DM PO SCH ×4 (08:55→21:44)
[2018-02-07] MEDS: PROTONIX TAB 40 MG PO SCH (08:55)
[2018-02-07] MEDS: TAMIFLU PO SCH ×2 (08:55→21:45)
[2018-02-07] MEDS: FOLIC ACID TAB 1 MG PO SCH (08:56)
[2018-02-07] MEDS: TENORMIN PO SCH (08:56)
[2018-02-07] MEDS: TUSSIONEX PENNKINETIC SUSP PO PRN ×2 (09:01→22:59)
--- NOTE | 2018-02-07 10:13 | RAD ---
Examination: KUB History: Abdominal pain Comparison reference: Abdomen CT, 08/20/2017 Findings: Nonobstructing intestinal gas pattern. No definite ileus, mass, ascites or visceral enlarge ment. Impression: No acute or specific abnormality demonstrated. Reported By:
[2018-02-07] MEDS: MILK OF MAGNESIA PO SCH (21:44)
[2018-02-07] MEDS: SINGULAIR TAB 10 MG PO SCH (21:45)
[2018-02-07] MEDS: NEURONTIN CAP 300 MG PO SCH (21:45)
--- NOTE | 2018-02-07 21:52 | PCM.PROG ---
Progress Note - Progress Note for Day of Date of Exam: 02/07/18 - Subjective Subjective: WAS ADMITTED FOR TREATMENT OF PNEUMONIA. TODAY, SHE IS ALERT AND ORIENTED, LYING IN BED ON MORNING ROUNDS. SHE REPORTS COMPLAINTS OF SHORTNESS OF BREATH, PERSISTENT COUGH, AND WEAKNESS. SHE WAS AFEBRILE THROUGHOUT THE NIGHT. SHE ALSO REPORTS COMPLAINTS OF CONSTIPATION. ON EXAMINATION, HEART IS REGULAR IN RATE AND RHYTHYM. BILATERAL LUNGS ARE NOTED WITH SCATTERED WHEEZING AND RHONCHI THROUGHOUT. ABDOMEN IS ROUND, SOFT, AND NON- TENDER WITH NORMAL BOWEL SOUNDS NOTED IN ALL QUADRANTS. HER VITALS THIS MORNING ARE 98.7-86-18-92%NC-135/69. LABS WERE OBTAINED. ABNORMAL LAB VALUES INCLUDE THE FOLLOWING: HGB 10.0, HCT 29.1, POTASSIUM 3.3, CREATININE 1.06, GLUCOSE 158, AST 54, ALBUMIN 2.6. SPUTUM AND BLOOD CULTURES ARE PENDING. A CHEST XRAY WAS OBTAINED AND REVEALED: Stable heart size. There is no change in the mild diffuse infiltrates in right upper lobe and left perihilar distribution. No complicating pneumothorax or developing pleural fluid is noted. TODAY, WE WILL OBTAIN A KUB AND ORDER A BOWEL REGIMEN. OTHERWISE, WE WILL CONTINUE IV ANTIBIOTICS, RESPIRATORY TREATMENTS, AND CURRENT PLAN OF CARE. WE PLAN TO FOLLOW UP WITH AM LABS AND CONTINUE TO MONITOR PATIENT. - Past Medical Family Social History Past Med/Fam/Surg Hx: No changes since H&P Allergies: Allergies levofloxacin Adverse Reaction (Verified 12/01/17 14:50) - Review of Systems ROS: No change since H&P - Vital Signs and I&O's Vital Signs: Temperature 97.7 F Pulse Rate [Right Brachial] 79 Pulse Rate 90 Respiratory Rate 20 Blood Pressure [Right Arm] 135/81 Blood Pressure [Left Arm] 128/60 Blood Pressure 127/57 O2 Sat by Pulse Oximetry 91 Intake and Output: Intake & Output 02/05/18 02/06/18 02/07/18 02/08/18 11:59 11:59 11:59 11:59 Intake Total 570 / 570 3030 / 3030 680 / 680 1025 / 1025 Output Total 0 / 0 Balance 570 / 570 3030 / 3030 680 / 680 1025 / 1025 - Physical Exam Oriented: Normal Eyes: Normal Ear: Normal Nose: Normal Throat: Normal Respiratory: Generalized, Wheezes, Rhonchi Cardiovascular: Normal : Normal Auscultation: Bowel Sounds: Normal Tenderness: Normal Skin: Normal Musculoskeletal: Normal Mood Description: Calm Affect: Normal Speech Pattern: Clear, Appropriate - Laboratory and Diagnostics Result Diagrams: 02/07/18 07:00 02/07/18 04:45 Labs: 02/04/18 12:53 Blood Blood Culture - Preliminary 02/04/18 12:46 Blood Blood Culture - Preliminary 02/04/18 15:26 Sputum - Expectorated Sputum Sputum Culture - Final 02/04/18 15:26 Sputum - Expectorated Sputum - Final Laboratory WBC 4.7 X10^3/uL (3.6-10.0) 02/07/18 07:00 RBC 3.68 X10^6/uL (3.5-5.4) 02/07/18 07:00 Hgb 10.0 g/dL (12.0-16.0) L 02/07/18 07:00 Hct 29.1 % (36.0-47.0) L 02/07/18 07:00 MCV 79.0 fL (80.0-100.0) L 02/07/18 07:00 MCH 27.2 pg (27.0-34.0) 02/07/18 07:00 MCHC 34.4 g/dL (33.0-35.0) 02/07/18 07:00 RDW 15.5 % (11.6-16.5) 02/07/18 07:00 Plt Count 167 X10^3/uL (150.0-450.0) 02/07/18 07:00 MPV 8.3 fL (7.4-11.0) 02/07/18 07:00 Neut % (Auto) 86.5 % (42.0-75.0) H 02/07/18 07:00 Lymph % (Auto) 8.9 % (21.0-51.0) L 02/07/18 07:00 [place] % (Auto) 4.3 % (0.0-13.0) 02/07/18 07:00 Eos % (Auto) 0.0 % (0.9-2.9) L 02/07/18 07:00 Baso % (Auto) 0.3 % (0.2-1.0) 02/07/18 07:00 Neut # (Auto) 4.0 x10^3/uL (2.2-4.8) 02/07/18 07:00 Lymph # (Auto) 0.4 X10^3/uL (1.3-2.9) L 02/07/18 07:00 [place] # (Auto) 0.2 x10^3/uL (0.3-0.8) L 02/07/18 07:00 Eos # (Auto) 0.0 x10^3/uL (0.0-0.2) 02/07/18 07:00 Baso # (Auto) 0.0 X10^3/uL (0.0-0.1) 02/07/18 07:00 Absolute Nucleated RBC 0.1 /100WBC 02/07/18 07:00 Sodium 141 mmol/L (136-145) 02/07/18 04:45 Corrected Sodium 142 mmol/L (136-145) 02/07/18 04:45 Potassium 3.3 mmol/L (3.5-5.1) L 02/07/18 04:45 Chloride 103 mmol/L (98-107) 02/07/18 04:45 Carbon Dioxide 29.7 mmol/L (21-32) 02/07/18 04:45 BUN 9 mg/dL (7-18) 02/07/18 04:45 Creatinine 1.06 mg/dL (0.55-1.02) H 02/07/18 04:45 Est GFR (MDRD) Af Amer > 60 (>60) 02/07/18 04:45 Est GFR (MDRD) Non-Af 54 (>60) L 02/07/18 04:45 Glucose 158 mg/dL (65-99) H 02/07/18 04:45 Calcium 8.6 mg/dL (8.5-10.1) 02/07/18 04:45 Corrected Calcium 9.7 mg/dL (8.5-10.1) 02/07/18 04:45 Magnesium 2.6 mg/dL (1.7-2.9) 02/07/18 04:45 Total Bilirubin 0.60 mg/dL (0.2-1.0) 02/07/18 04:45 AST 54 Units/L (15-37) H 02/07/18 04:45 ALT 29 Units/L (12-78) 02/07/18 04:45 Alkaline Phosphatase 67 Units/L (46-116) 02/07/18 04:45 Total Protein 6.4 g/dL (6.4-8.2) 02/07/18 04:45 Albumin 2.6 g/dL (3.4-5.0) L 02/07/18 04:45 Globulin 3.8 g/dL (2.5-4.5) 02/07/18 04:45 Albumin/Globulin Ratio 0.7 Ratio (1.1-2.1) L 02/07/18 04:45 Influenza Type A (PCR) Negative (NEGATIVE) 02/04/18 15:26 Influenza Type B (PCR) Negative (NEGATIVE) 02/04/18 15:26 - Plan (1) Pneumonia Status: Acute Qualifiers: Pneumonia type: due to unspecified organism Laterality: left Lung location: unspecified part of lung Qualified Code(s): J18.9 - Pneumonia, unspecified organism Plan: PNEUMONIA PROTOCOL WITH IV ANTIBIOTICS AND RESPIRATORY TREATMENTS, TAMIFLU 75MG PO BID, SOLU-MEDROL 40MG IV TID, CONTINUE TO MONITOR
[2018-02-07] MEDS: AMBIEN PO SCH (22:58)
[2018-02-08] MEDS: DUONEB 0.5 MG/3 MG NEB SCH ×4 (00:40→12:12)
[2018-02-08] MEDS ORDERED: NS 1/2 1000 ML IV 1,000 ML IV ONE ×2 (04:16→18:22)
[2018-02-08] MEDS ORDERED: NS 100 ML IV + SPIKE MINIBAG* 100 ML IV ONE ×3 (04:18→20:26)
[2018-02-08] MEDS: NS 1/2 1000 ML IV 1,000 ML IV SCH ×3 (04:52→16:50)
[2018-02-08] MEDS: ZOSYN VIAL 4.5 GRAMS IV SCH ×3 (05:59→21:20)
[2018-02-08] MEDS: SOLU-Medrol 40 MG VIAL IVP SCH ×3 (05:59→21:19)
[2018-02-08] MEDS: SYNTHROID 100 mcg TAB PO SCH (05:59)
[2018-02-08] MEDS: TYLENOL 325 MG TAB PO SCH ×3 (05:59→21:19)
[2018-02-08 06:05] LABS: BASOPHILS % (AUTO) 0.1 % (0.2-1.0); EOSINOPHILS % (AUTO) 0.1 % (0.9-2.9); HEMATOCRIT 25.9 % (36.0-47.0); HEMOGLOBIN 9.1 g/dL (12.0-16.0); LYMPHOCYTES # (AUTO) 0.7 X10^3/uL (1.3-2.9); LYMPHOCYTES % (AUTO) 10.8 % (21.0-51.0); MEAN CORPUSCULAR HEMOGLOBIN 27.8 pg (27.0-34.0); MEAN CORPUSCULAR HGB CONC 35.2 g/dL (33.0-35.0); MEAN CORPUSCULAR VOLUME 79.2 fL (80.0-100.0); MEAN PLATELET VOLUME 8.4 fL (7.4-11.0); MONOCYTES # (AUTO) 0.4 x10^3/uL (0.3-0.8); PLATELET COUNT 174 X10^3/uL (150.0-450.0); RED BLOOD COUNT 3.27 X10^6/uL (3.5-5.4); RED CELL DISTRIBUTION WIDTH 15.4 % (11.6-16.5)
[2018-02-08 06:21] LABS: ALANINE AMINOTRANSFERASE 29 Units/L (12-78); ALBUMIN 2.5 g/dL (3.4-5.0); ALKALINE PHOSPHATASE 58 Units/L (46-116); ASPARTATE AMINO TRANSFERASE 48 Units/L (15-37); BLOOD UREA NITROGEN 11 mg/dL (7-18); CALCIUM 8.5 mg/dL (8.5-10.1); CHLORIDE 104 mmol/L (98-107); COR CA(FOR HYPOALB) 9.7 mg/dL (8.5-10.1); COR NA(FOR HYPERGLY) 142 mmol/L (136-145); CREATININE 0.86 mg/dL (0.55-1.02); SODIUM 141 mmol/L (136-145); TOTAL PROTEIN 6.2 g/dL (6.4-8.2); eGFR NON BLACK RACES > 60 (>60)
--- NOTE | 2018-02-08 06:43 | RAD ---
Examination: Portable AP chest History: SOB Comparison reference 02/07/2018 Findings: Heart size is stable. There is persistent minimal left perihilar infiltrate with increasing airspace disease in the right upper lobe. Suggestion of less extensive infiltrate right base as well . No developing pleural fluid seen. Impression: Bilateral pulmonary infiltrates, with interval increase in the right lung since 8. Reported By:
[2018-02-08] MEDS: TENORMIN PO SCH (08:17)
[2018-02-08] MEDS: ROBITUSSIN DM PO SCH ×4 (08:17→21:19)
[2018-02-08] MEDS: ECOTRIN TAB 325 MG PO SCH (08:18)
[2018-02-08] MEDS: PROTONIX TAB 40 MG PO SCH (08:18)
[2018-02-08] MEDS: TAMIFLU PO SCH ×2 (08:18→21:19)
[2018-02-08] MEDS: FOLIC ACID TAB 1 MG PO SCH (08:18)
[2018-02-08] MEDS ORDERED: NS 100 ML IV 100 ML IV ONE (10:06)
[2018-02-08] MEDS: COLACE CAP 100 MG PO SCH ×2 (10:10→21:19)
[2018-02-08] MEDS: MILK OF MAGNESIA PO SCH ×4 (10:11→21:18)
[2018-02-08] MEDS: MIRALAX POWDER (1 DOSE 17 G) PO SCH (10:11)
--- NOTE | 2018-02-08 11:58 | CT ---
HISTORY: Cough, shortness of breath Study: CT chest with IV contrast Comparison: Chest x-ray done 02/08/2018, cardiac CTA done 07/26/2016. Technique: Multiple axial images of the chest were obtained from the thoracic inlet to the upper abdo men during the administration of IV contrast. Coronal and sagittal images are also reviewed. Dose red uction techniques utilized automatic exposure control. Findings: The mediastinum does not demonstrate significant pathological lymphadenopathy. There is no pericardi al effusion observed. The thoracic aorta is normal in its contour without evidence for aneurysmal di latation. Right coronary artery calcifications are again seen. The central pulmonary arterial system does not demonstrate central filling defects to suggest pulmonary emboli. Evaluation of the lung parenchyma reveals patchy bilateral ground-glass opacities. More confluent brittany g opacities are seen in right upper and left lower lobe regions. There are small bilateral pleural ef fusions, larger on the left. There are changes of mild cylindrical bronchiectasis bilaterally.. No p ulmonary nodule or mass can be identified. The bony thorax is unremarkable in its appearance. The v isualized portions of the upper abdomen are grossly unremarkable. IMPRESSION: No evidence of pulmonary embolus or thoracic aortic aneurysm. Patchy bilateral ground-glass opacities with more confluent opacities in right upper and left lower l obe regions. There are bilateral pleural effusions which are small. There is bilateral cylindrical br onchiectasis. Reported By:
[2018-02-08 14:16] LABS: CREATINE KINASE MB 2.6 ng/mL (0-4.0); TROPONIN I < 0.02 ng/mL (0-1.5)
[2018-02-08 14:17] LABS: CKMB % 0.2 % (<4); CREATINE KINASE 1648 Units/L (26-192)
[2018-02-08] MEDS: XOPENEX 1.25 MG/3 ML NEBULE NEB SCH ×2 (16:34→21:23)
[2018-02-08 20:26] LABS: CREATINE KINASE MB 2.7 ng/mL (0-4.0); TROPONIN I < 0.02 ng/mL (0-1.5)
[2018-02-08 20:36] LABS: CKMB % 0.2 % (<4); CREATINE KINASE 1497 Units/L (26-192)
[2018-02-08] MEDS: NEURONTIN CAP 300 MG PO SCH (21:18)
[2018-02-08] MEDS: AMBIEN PO SCH (21:18)
[2018-02-08] MEDS: SINGULAIR TAB 10 MG PO SCH (21:19)
[2018-02-08] MEDS: TUSSIONEX PENNKINETIC SUSP PO PRN (21:20)
[2018-02-09] MEDS ORDERED: NS 100 ML IV + SPIKE MINIBAG* 100 ML IV ONE ×3 (04:46→21:09)
[2018-02-09] MEDS: SOLU-Medrol 40 MG VIAL IVP SCH (05:09)
[2018-02-09] MEDS: TYLENOL 325 MG TAB PO SCH ×3 (05:10→21:43)
[2018-02-09] MEDS: ZOSYN VIAL 4.5 GRAMS IV SCH ×3 (05:11→21:43)
[2018-02-09] MEDS: NS 1/2 1000 ML IV 1,000 ML IV SCH ×2 (06:02→21:41)
[2018-02-09] MEDS: SYNTHROID 100 mcg TAB PO SCH (06:03)
[2018-02-09 06:13] LABS: BASOPHILS % (AUTO) 0.1 % (0.2-1.0); EOSINOPHILS % (AUTO) 0.1 % (0.9-2.9); HEMATOCRIT 24.1 % (36.0-47.0); HEMOGLOBIN 8.3 g/dL (12.0-16.0); LYMPHOCYTES # (AUTO) 0.9 X10^3/uL (1.3-2.9); LYMPHOCYTES % (AUTO) 12.7 % (21.0-51.0); MEAN CORPUSCULAR HEMOGLOBIN 27.4 pg (27.0-34.0); MEAN CORPUSCULAR HGB CONC 34.4 g/dL (33.0-35.0); MEAN CORPUSCULAR VOLUME 79.7 fL (80.0-100.0); MEAN PLATELET VOLUME 8.3 fL (7.4-11.0); MONOCYTES # (AUTO) 0.7 x10^3/uL (0.3-0.8); MONOCYTES % (AUTO) 9.6 % (0.0-13.0); NEUTROPHILS # (AUTO) 5.6 x10^3/uL (2.2-4.8); NEUTROPHILS % (AUTO) 77.5 % (42.0-75.0); PLATELET COUNT 194 X10^3/uL (150.0-450.0); RED BLOOD COUNT 3.02 X10^6/uL (3.5-5.4); RED CELL DISTRIBUTION WIDTH 15.5 % (11.6-16.5); WHITE BLOOD COUNT 7.3 X10^3/uL (3.6-10.0)
--- NOTE | 2018-02-09 06:13 | RAD ---
HISTORY: Shortness of breath Study: Chest AP portable Comparison: 02/08/2018 plain film and chest CT Findings: The heart is enlarged. No congestive heart failure is noted. There is no significant change in the ri ght upper and right lower lobe infiltrates being followed. Slight increase is noted in the left upper lobe infiltrate present. No definite pleural effusions are identified. The bony thorax is unremarkab le. IMPRESSION: No change right upper, right lower lobe infiltrates. Slight increase left upper lobe infiltrate Mild cardiomegaly without congestive heart failure Reported By:
[2018-02-09 06:50] LABS: ALANINE AMINOTRANSFERASE 36 Units/L (12-78); ALBUMIN 2.4 g/dL (3.4-5.0); ALKALINE PHOSPHATASE 55 Units/L (46-116); ASPARTATE AMINO TRANSFERASE 54 Units/L (15-37); BLOOD UREA NITROGEN 14 mg/dL (7-18); CHLORIDE 104 mmol/L (98-107); COR CA(FOR HYPOALB) 9.3 mg/dL (8.5-10.1); CREATININE 0.87 mg/dL (0.55-1.02); SODIUM 140 mmol/L (136-145); TOTAL PROTEIN 5.9 g/dL (6.4-8.2); eGFR NON BLACK RACES > 60 (>60)
[2018-02-09 06:51] LABS: CKMB % 0.2 % (<4); CREATINE KINASE 1152 Units/L (26-192); CREATINE KINASE MB 1.9 ng/mL (0-4.0)
[2018-02-09 06:52] LABS: TROPONIN I < 0.02 ng/mL (0-1.5)
[2018-02-09 07:03] LABS: BAND NEUTROPHILS % 4 % (0-10)
[2018-02-09 07:04] LABS: PLATELET MORPHOLOGY COMMENT NORMAL (NORMAL)
[2018-02-09] MEDS: XOPENEX 1.25 MG/3 ML NEBULE NEB SCH ×5 (07:12→21:38)
[2018-02-09] MEDS ORDERED: XANAX PO ONE (08:12)
[2018-02-09] MEDS: ZOFRAN INJ 4 MG VIAL IVP PRN (08:44)
[2018-02-09 08:58] LABS: ABG BASE EXCESS 14.3 mmol/L (-2.0-2.0); ABG HCO3 38.5 mmol/L (22-26)
[2018-02-09] MEDS: FOLIC ACID TAB 1 MG PO SCH (09:00)
[2018-02-09] MEDS: TAMIFLU PO SCH ×2 (09:00→21:42)
[2018-02-09] MEDS: ECOTRIN TAB 325 MG PO SCH (09:00)
[2018-02-09] MEDS: TENORMIN PO SCH (09:00)
[2018-02-09] MEDS: PROTONIX TAB 40 MG PO SCH (09:00)
[2018-02-09] MEDS: MILK OF MAGNESIA PO SCH ×4 (09:19→21:41)
[2018-02-09] MEDS: ROBITUSSIN DM PO SCH ×4 (09:20→21:41)
[2018-02-09] MEDS: MIRALAX POWDER (1 DOSE 17 G) PO SCH (09:20)
[2018-02-09] MEDS: COLACE CAP 100 MG PO SCH ×2 (09:21→21:42)
[2018-02-09] MEDS: TUSSIONEX PENNKINETIC SUSP PO SCH ×2 (09:31→21:42)
[2018-02-09] MEDS: ALBUMIN HUMAN 25%- 100 ML 100 ML IV SCH (11:03)
[2018-02-09] MEDS: LASIX IVP SCH ×2 (11:03→21:41)
--- NOTE | 2018-02-09 13:28 | PCM.PROG ---
Progress Note - Progress Note for Day of Date of Exam: 02/08/18 - Subjective Subjective: WAS ADMITTED FOR TREATMENT OF PNEUMONIA. TODAY, SHE IS ALERT AND ORIENTED, LYING IN BED ON MORNING ROUNDS. SHE REPORTS COMPLAINTS OF SHORTNESS OF BREATH, PERSISTENT, PRODUCTIVE COUGH, AND WEAKNESS. SHE DESCRIBES SPUTUM BLOOD TINGED. SHE WAS AFEBRILE THROUGHOUT THE NIGHT, BUT REPORTS THAT HER COUGH IS WORSENING. SHE CONTINUES TO DENY A BOWEL MOVEMENT. ON EXAMINATION, HEART IS REGULAR IN RATE AND RHYTHYM. BILATERAL LUNGS ARE NOTED WITH SCATTERED WHEEZING AND RHONCHI THROUGHOUT. ABDOMEN IS ROUND, SOFT, AND NON-TENDER WITH NORMAL BOWEL SOUNDS NOTED IN ALL QUADRANTS. HER VITALS THIS MORNING ARE 98.3-84- 20-90%NC-154/70. LABS WERE OBTAINED. ABNORMAL LAB VALUES INCLUDE THE FOLLOWING: RBC 3.27, HGB 9.1, HCT 25.9, GLUCOSE 136, AST 48, TOTAL PROTEIN 6.2, ALBUMIN 2.5. SPUTUM AND BLOOD CULTURES ARE PENDING. A CHEST XRAY WAS OBTAINED AND REVEALED: Bilateral pulmonary infiltrates, with interval increase in the right lung since 02/07/2018. TODAY, WE WILL OBTAIN A CHEST XT WITH CONTRAST. WE WILL ALSO INCREASE THE FREQUENCY OF MILK OF MAGNESIA. OTHERWISE, WE WILL CONTINUE IV ANTIBIOTICS, RESPIRATORY TREATMENTS, AND CURRENT PLAN OF CARE. WE PLAN TO FOLLOW UP WITH AM LABS AND CONTINUE TO MONITOR PATIENT. - Past Medical Family Social History Past Med/Fam/Surg Hx: No changes since H&P Allergies: Allergies levofloxacin Adverse Reaction (Verified 12/01/17 14:50) - Review of Systems ROS: No change since H&P - Vital Signs and I&O's Vital Signs: Temperature 97.8 F Pulse Rate [Right Brachial] 91 Pulse Rate 85 Respiratory Rate 18 Blood Pressure [Right Arm] 158/69 Blood Pressure [Left Arm] 129/62 Blood Pressure 127/57 O2 Sat by Pulse Oximetry 91 Intake and Output: Intake & Output 02/07/18 02/08/18 02/09/18 02/10/18 11:59 11:59 11:59 11:59 Intake Total 680 / 680 3201 / 3201 2700 / 2700 Balance 680 / 680 3201 / 3201 2700 / 2700 - Physical Exam Oriented: Normal Eyes: Normal Ear: Normal Nose: Normal Throat: Normal Respiratory: Generalized, Wheezes, Rhonchi Cardiovascular: Normal : Normal Auscultation: Bowel Sounds: Normal Palpation: Normal Tenderness: Normal Skin: Normal Musculoskeletal: Normal Mood Description: Calm Affect: Normal Speech Pattern: Clear, Appropriate - Laboratory and Diagnostics Result Diagrams: 02/09/18 04:37 02/09/18 04:37 Labs: 02/09/18 09:17 Sputum - Expectorated Sputum - Final 02/04/18 12:53 Blood Blood Culture - Preliminary 02/04/18 12:46 Blood Blood Culture - Preliminary 02/04/18 15:26 Sputum - Expectorated Sputum Sputum Culture - Final 02/04/18 15:26 Sputum - Expectorated Sputum - Final Laboratory WBC 7.3 X10^3/uL (3.6-10.0) 02/09/18 04:37 RBC 3.02 X10^6/uL (3.5-5.4) L 02/09/18 04:37 Hgb 8.3 g/dL (12.0-16.0) L 02/09/18 04:37 Hct 24.1 % (36.0-47.0) L 02/09/18 04:37 MCV 79.7 fL (80.0-100.0) L 02/09/18 04:37 MCH 27.4 pg (27.0-34.0) 02/09/18 04:37 MCHC 34.4 g/dL (33.0-35.0) 02/09/18 04:37 RDW 15.5 % (11.6-16.5) 02/09/18 04:37 Plt Count 194 X10^3/uL (150.0-450.0) 02/09/18 04:37 Plt Count Comment Adequate (ADEQUATE) 02/09/18 04:37 MPV 8.3 fL (7.4-11.0) 02/09/18 04:37 Neut % (Auto) 77.5 % (42.0-75.0) H 02/09/18 04:37 Lymph % (Auto) 12.7 % (21.0-51.0) L 02/09/18 04:37 [place] % (Auto) 9.6 % (0.0-13.0) 02/09/18 04:37 Eos % (Auto) 0.1 % (0.9-2.9) L 02/09/18 04:37 Baso % (Auto) 0.1 % (0.2-1.0) L 02/09/18 04:37 Neut # (Auto) 5.6 x10^3/uL (2.2-4.8) H 02/09/18 04:37 Lymph # (Auto) 0.9 X10^3/uL (1.3-2.9) L 02/09/18 04:37 [place] # (Auto) 0.7 x10^3/uL (0.3-0.8) 02/09/18 04:37 Eos # (Auto) 0.0 x10^3/uL (0.0-0.2) 02/09/18 04:37 Baso # (Auto) 0.0 X10^3/uL (0.0-0.1) 02/09/18 04:37 Absolute Nucleated RBC 0.1 /100WBC 02/09/18 04:37 Total Counted 100 02/09/18 04:37 Neutrophils % (Manual) 74 % (39-76) 02/09/18 04:37 Band Neutrophils % 4 % (0-10) 02/09/18 04:37 Lymphocytes % (Manual) 15 % (13-43) 02/09/18 04:37 Monocytes % (Manual) 7 % (4-9) 02/09/18 04:37 Plt Morphology Comment Normal (NORMAL) 02/09/18 04:37 RBC Morphology Normal (NORMAL) 02/09/18 04:37 INR Target Range - 02/09/18 10:11 INR 1.05 (0.8-1.3) 02/09/18 10:11 Sample Site Rb 02/09/18 08:46 ABG pH 7.540 (7.35-7.45) H 02/09/18 08:46 ABG pCO2 45.0 mmHg (35.0-45.0) 02/09/18 08:46 ABG pO2 96.0 mmHg (80.0-100.0) 02/09/18 08:46 ABG HCO3 38.5 mmol/L (22-26) H* 02/09/18 08:46 ABG O2 Saturation 98.0 % (90-100) 02/09/18 08:46 ABG Base Excess 14.3 mmol/L (-2.0-2.0) H 02/09/18 08:46 Martin Test Na 02/09/18 08:46 A-a Gradient 104.0 mmHg 02/09/18 08:46 FiO2 36.000 02/09/18 08:46 Blood Gas Comments Malaika abg well-mtf 02/09/18 08:46 Sodium 140 mmol/L (136-145) 02/09/18 04:37 Corrected Sodium TNP 02/09/18 04:37 Potassium 3.5 mmol/L (3.5-5.1) 02/09/18 04:37 Chloride 104 mmol/L (98-107) 02/09/18 04:37 Carbon Dioxide 36.0 mmol/L (21-32) H 02/09/18 04:37 BUN 14 mg/dL (7-18) 02/09/18 04:37 Creatinine 0.87 mg/dL (0.55-1.02) 02/09/18 04:37 Est GFR (MDRD) Af Amer > 60 (>60) 02/09/18 04:37 Est GFR (MDRD) Non-Af > 60 (>60) 02/09/18 04:37 Glucose 97 mg/dL (65-99) 02/09/18 04:37 POC Glucose (mg/dL) 103 mg/dL (65-99) H 02/09/18 06:08 Lactic Acid 1.2 mmol/L (0.4-2.0) 02/09/18 10:11 Calcium 8.0 mg/dL (8.5-10.1) L 02/09/18 04:37 Corrected Calcium 9.3 mg/dL (8.5-10.1) 02/09/18 04:37 Magnesium 2.6 mg/dL (1.7-2.9) 02/07/18 04:45 Total Bilirubin 0.60 mg/dL (0.2-1.0) 02/09/18 04:37 AST 54 Units/L (15-37) H 02/09/18 04:37 ALT 36 Units/L (12-78) 02/09/18 04:37 Alkaline Phosphatase 55 Units/L (46-116) 02/09/18 04:37 Creatine Kinase 1152 Units/L (26-192) H 02/09/18 04:37 CK-MB (CK-2) 1.9 ng/mL (0-4.0) 02/09/18 04:37 CK/CKMB % Calc 0.2 % (<4) 02/09/18 04:37 Troponin I < 0.02 ng/mL (0-1.5) 02/09/18 04:37 Total Protein 5.9 g/dL (6.4-8.2) L 02/09/18 04:37 Albumin 2.4 g/dL (3.4-5.0) L 02/09/18 04:37 Globulin 3.5 g/dL (2.5-4.5) 02/09/18 04:37 Albumin/Globulin Ratio 0.7 Ratio (1.1-2.1) L 02/09/18 04:37 Influenza Type A (PCR) Negative (NEGATIVE) 02/04/18 15:26 Influenza Type B (PCR) Negative (NEGATIVE) 02/04/18 15:26 - Plan (1) Pneumonia Status: Acute Qualifiers: Pneumonia type: due to unspecified organism Laterality: left Lung location: unspecified part of lung Qualified Code(s): J18.9 - Pneumonia, unspecified organism Plan: PNEUMONIA PROTOCOL WITH IV ANTIBIOTICS AND RESPIRATORY TREATMENTS, OBTAIN CHEST CT WITH CONTRAST, TAMIFLU 75MG PO BID, SOLU-MEDROL 40MG IV TID, CONTINUE TO MONITOR
[2018-02-09] MEDS ORDERED: XANAX PO PRN (15:09)
[2018-02-09] MEDS ORDERED: NS 1/2 1000 ML IV 1,000 ML IV ONE (21:07)
[2018-02-09] MEDS: AMBIEN PO SCH (21:41)
[2018-02-09] MEDS: NEURONTIN CAP 300 MG PO SCH (21:41)
[2018-02-09] MEDS: SINGULAIR TAB 10 MG PO SCH (21:41)
[2018-02-09] MEDS ORDERED: TUSSIONEX PENNKINETIC SUSP PO ONE (23:34)
[2018-02-10] MEDS ORDERED: NS 100 ML IV + SPIKE MINIBAG* 100 ML IV ONE (02:36)
[2018-02-10] MEDS: TYLENOL 325 MG TAB PO SCH (05:07)
[2018-02-10] MEDS: ZOSYN VIAL 4.5 GRAMS IV SCH (05:07)
[2018-02-10 06:13] LABS: BASOPHILS % (AUTO) 0.1 % (0.2-1.0); EOSINOPHILS % (AUTO) 0.1 % (0.9-2.9); HEMATOCRIT 23.9 % (36.0-47.0); HEMOGLOBIN 8.1 g/dL (12.0-16.0); LYMPHOCYTES # (AUTO) 1.2 X10^3/uL (1.3-2.9); LYMPHOCYTES % (AUTO) 16.7 % (21.0-51.0); MEAN CORPUSCULAR HEMOGLOBIN 27.5 pg (27.0-34.0); MEAN CORPUSCULAR HGB CONC 33.9 g/dL (33.0-35.0); MEAN CORPUSCULAR VOLUME 81.2 fL (80.0-100.0); MEAN PLATELET VOLUME 8.4 fL (7.4-11.0); MONOCYTES # (AUTO) 0.6 x10^3/uL (0.3-0.8); MONOCYTES % (AUTO) 8.7 % (0.0-13.0); NEUTROPHILS # (AUTO) 5.5 x10^3/uL (2.2-4.8); NEUTROPHILS % (AUTO) 74.4 % (42.0-75.0); PLATELET COUNT 198 X10^3/uL (150.0-450.0); RED BLOOD COUNT 2.95 X10^6/uL (3.5-5.4); RED CELL DISTRIBUTION WIDTH 15.8 % (11.6-16.5); WHITE BLOOD COUNT 7.5 X10^3/uL (3.6-10.0)
[2018-02-10 06:20] LABS: ALANINE AMINOTRANSFERASE 43 Units/L (12-78); ALBUMIN 2.6 g/dL (3.4-5.0); ALKALINE PHOSPHATASE 52 Units/L (46-116); ASPARTATE AMINO TRANSFERASE 50 Units/L (15-37); BLOOD UREA NITROGEN 12 mg/dL (7-18); CALCIUM 8.1 mg/dL (8.5-10.1); CARBON DIOXIDE 38.1 mmol/L (21-32); CHLORIDE 101 mmol/L (98-107); COR CA(FOR HYPOALB) 9.2 mg/dL (8.5-10.1); CREATININE 0.84 mg/dL (0.55-1.02); SODIUM 141 mmol/L (136-145); eGFR NON BLACK RACES > 60 (>60)
--- NOTE | 2018-02-10 06:54 | RAD ---
HISTORY: Shortness of breath Study: Chest AP portable Comparison: 02/09/2018 Findings: The heart is mildly enlarged. No congestive heart failure is noted. Right upper lobe infiltrate is sl ightly improved when compared with the prior examination. Significant improvement is noted in the rig ht lower lobe infiltrate. The left upper lobe infiltrate is unchanged. No definite pleural effusions are identified. The bony thorax is unremarkable. IMPRESSION: Improving right upper and right lower lobe infiltrates No change left upper lobe infiltrate Mild cardiomegaly without congestive heart failure Reported By:
[2018-02-10 07:35] LABS: BAND NEUTROPHILS % 4 % (0-10); PLATELET MORPHOLOGY COMMENT NORMAL (NORMAL)
[2018-02-10] MEDS: SYNTHROID 100 mcg TAB PO SCH (08:18)
[2018-02-10] MEDS: TAMIFLU PO SCH (08:18)
[2018-02-10] MEDS: ECOTRIN TAB 325 MG PO SCH (08:18)
[2018-02-10] MEDS: TENORMIN PO SCH (08:18)
[2018-02-10] MEDS: FOLIC ACID TAB 1 MG PO SCH (08:18)
[2018-02-10] MEDS: PROTONIX TAB 40 MG PO SCH (08:19)
[2018-02-10] MEDS: ALBUMIN HUMAN 25%- 100 ML 100 ML IV SCH (08:19)
[2018-02-10] MEDS: ROBITUSSIN DM PO SCH (08:19)
[2018-02-10] MEDS: XOPENEX 1.25 MG/3 ML NEBULE NEB SCH (08:28)
[2018-02-10] MEDS: MILK OF MAGNESIA PO SCH (10:09)
[2018-02-10] MEDS: COLACE CAP 100 MG PO SCH (10:09)
[2018-02-10] MEDS: MIRALAX POWDER (1 DOSE 17 G) PO SCH (10:09)
[2018-02-10 10:11] VITALS: BP 150/68
--- NOTE | 2018-03-15 15:28 | PCM.PROG ---
Progress Note - Progress Note for Day of Date of Exam: 02/09/18 - Subjective Subjective: WAS ADMITTED FOR TREATMENT OF PNEUMONIA. TODAY, SHE IS ALERT AND ORIENTED, LYING IN BED ON MORNING ROUNDS. SHE REPORTS COMPLAINTS OF SHORTNESS OF BREATH, PERSISTENT, PRODUCTIVE COUGH THAT IS WORSENING, AND WEAKNESS. SHE DESCRIBES SPUTUM BLOOD TINGED. SHE REPORTS HAVING A BOWEL MOVEMENT SINCE YESTERDAY. ON EXAMINATION, HEART IS REGULAR IN RATE AND RHYTHYM. BILATERAL LUNGS CONTINUE WITH SCATTERED WHEEZING AND RHONCHI THROUGHOUT. ABDOMEN IS ROUND, SOFT, AND NON-TENDER WITH NORMAL BOWEL SOUNDS NOTED IN ALL QUADRANTS. HER VITALS THIS MORNING ARE 97.8-91-18-91%NC-158/69. LABS WERE OBTAINED. ABNORMAL LAB VALUES INCLUDE THE FOLLOWING: RBC 3.02, HGB 8.3, HCT 24.1 , CARBON DIOXIDE 36.0, CALCIUM 8.0, AST 54, TOTAL PROTEIN 5.9, ALBUMIN 2.4. CREATINE KINASE HAS DECREASED FROM 1497 TO 1152. SPUTUM AND BLOOD CULTURES REPORT NO GROWTH. A CHEST XRAY WAS OBTAINED AND REVEALED: No change right upper , right lower lobe infiltrates. Slight increase left upper lobe infiltrate. Mild cardiomegaly without congestive heart failure. YESTERDAYS CHEST CT REVEALED: No evidence of pulmonary embolus or thoracic aortic aneurysm. Patchy bilateral ground-glass opacities with more confluent opacities in right upper and left lower lobe regions. There are bilateral pleural effusions which are small. There is bilateral cylindrical bronchiectasis. TODAY, WE WILL START THE SMART VEST, LASIX 20MG IV Q12H, AND ALBUMIN 25% IV DAILY. OTHERWISE, WE WILL CONTINUE IV ANTIBIOTICS, RESPIRATORY TREATMENTS, AND CURRENT PLAN OF CARE. WE PLAN TO FOLLOW UP WITH AM LABS AND CONTINUE TO MONITOR PATIENT. - Past Medical Family Social History Past Med/Fam/Surg Hx: No changes since H&P Allergies: Allergies levofloxacin Adverse Reaction (Verified 12/01/17 14:50) - Review of Systems ROS: No change since H&P - Vital Signs and I&O's Vital Signs: Temperature 98.4 F Pulse Rate [Right Brachial] 72 Pulse Rate 82 Respiratory Rate 20 Blood Pressure [Right Arm] 150/68 Blood Pressure [Left Arm] 129/62 Blood Pressure 127/57 O2 Sat by Pulse Oximetry 92 - Physical Exam Oriented: Normal Eyes: Normal Ear: Normal Nose: Normal Throat: Normal Respiratory: Generalized, Wheezes, Rhonchi Cardiovascular: Normal : Normal Auscultation: Bowel Sounds: Normal Palpation: Normal Tenderness: Normal Skin: Normal Musculoskeletal: Normal Mood Description: Calm Affect: Normal Speech Pattern: Clear, Appropriate - Laboratory and Diagnostics Result Diagrams: 02/10/18 05:17 02/10/18 05:17 Labs: 02/09/18 09:17 Sputum - Expectorated Sputum Sputum Culture - Final 02/09/18 09:17 Sputum - Expectorated Sputum - Final 02/04/18 12:53 Blood Blood Culture - Final 02/04/18 12:46 Blood Blood Culture - Final 02/04/18 15:26 Sputum - Expectorated Sputum Sputum Culture - Final 02/04/18 15:26 Sputum - Expectorated Sputum - Final Laboratory WBC 7.5 X10^3/uL (3.6-10.0) 02/10/18 05:17 RBC 2.95 X10^6/uL (3.5-5.4) L 02/10/18 05:17 Hgb 8.1 g/dL (12.0-16.0) L 02/10/18 05:17 Hct 23.9 % (36.0-47.0) L 02/10/18 05:17 MCV 81.2 fL (80.0-100.0) 02/10/18 05:17 MCH 27.5 pg (27.0-34.0) 02/10/18 05:17 MCHC 33.9 g/dL (33.0-35.0) 02/10/18 05:17 RDW 15.8 % (11.6-16.5) 02/10/18 05:17 Plt Count 198 X10^3/uL (150.0-450.0) 02/10/18 05:17 Plt Count Comment Adequate (ADEQUATE) 02/10/18 05:17 MPV 8.4 fL (7.4-11.0) 02/10/18 05:17 Neut % (Auto) 74.4 % (42.0-75.0) 02/10/18 05:17 Lymph % (Auto) 16.7 % (21.0-51.0) L 02/10/18 05:17 [place] % (Auto) 8.7 % (0.0-13.0) 02/10/18 05:17 Eos % (Auto) 0.1 % (0.9-2.9) L 02/10/18 05:17 Baso % (Auto) 0.1 % (0.2-1.0) L 02/10/18 05:17 Neut # (Auto) 5.5 x10^3/uL (2.2-4.8) H 02/10/18 05:17 Lymph # (Auto) 1.2 X10^3/uL (1.3-2.9) L 02/10/18 05:17 [place] # (Auto) 0.6 x10^3/uL (0.3-0.8) 02/10/18 05:17 Eos # (Auto) 0.0 x10^3/uL (0.0-0.2) 02/10/18 05:17 Baso # (Auto) 0.0 X10^3/uL (0.0-0.1) 02/10/18 05:17 Absolute Nucleated RBC 0.2 /100WBC 02/10/18 05:17 Total Counted 100 02/10/18 05:17 Neutrophils % (Manual) 75 % (39-76) 02/10/18 05:17 Band Neutrophils % 4 % (0-10) 02/10/18 05:17 Lymphocytes % (Manual) 16 % (13-43) 02/10/18 05:17 Monocytes % (Manual) 5 % (4-9) 02/10/18 05:17 Plt Morphology Comment Normal (NORMAL) 02/10/18 05:17 RBC Morphology Normal (NORMAL) 02/10/18 05:17 INR Target Range - 02/09/18 10:11 INR 1.05 (0.8-1.3) 02/09/18 10:11 Sample Site Rbra 02/09/18 08:46 ABG pH 7.540 (7.35-7.45) H 02/09/18 08:46 ABG pCO2 45.0 mmHg (35.0-45.0) 02/09/18 08:46 ABG pO2 96.0 mmHg (80.0-100.0) 02/09/18 08:46 ABG HCO3 38.5 mmol/L (22-26) H* 02/09/18 08:46 ABG O2 Saturation 98.0 % (90-100) 02/09/18 08:46 ABG Base Excess 14.3 mmol/L (-2.0-2.0) H 02/09/18 08:46 Martin Test Na 02/09/18 08:46 A-a Gradient 104.0 mmHg 02/09/18 08:46 FiO2 36.000 02/09/18 08:46 Blood Gas Comments Malaika abg well-mtf 02/09/18 08:46 Sodium 141 mmol/L (136-145) 02/10/18 05:17 Corrected Sodium TNP 02/10/18 05:17 Potassium 3.1 mmol/L (3.5-5.1) L 02/10/18 05:17 Chloride 101 mmol/L (98-107) 02/10/18 05:17 Carbon Dioxide 38.1 mmol/L (21-32) H 02/10/18 05:17 BUN 12 mg/dL (7-18) 02/10/18 05:17 Creatinine 0.84 mg/dL (0.55-1.02) 02/10/18 05:17 Est GFR (MDRD) Af Amer > 60 (>60) 02/10/18 05:17 Est GFR (MDRD) Non-Af > 60 (>60) 02/10/18 05:17 Glucose 87 mg/dL (65-99) 02/10/18 05:17 POC Glucose (mg/dL) 103 mg/dL (65-99) H 02/09/18 06:08 Lactic Acid 1.2 mmol/L (0.4-2.0) 02/09/18 10:11 Calcium 8.1 mg/dL (8.5-10.1) L 02/10/18 05:17 Corrected Calcium 9.2 mg/dL (8.5-10.1) 02/10/18 05:17 Magnesium 2.6 mg/dL (1.7-2.9) 02/07/18 04:45 Total Bilirubin 0.90 mg/dL (0.2-1.0) 02/10/18 05:17 AST 50 Units/L (15-37) H 02/10/18 05:17 ALT 43 Units/L (12-78) 02/10/18 05:17 Alkaline Phosphatase 52 Units/L (46-116) 02/10/18 05:17 Creatine Kinase 1152 Units/L (26-192) H 02/09/18 04:37 CK-MB (CK-2) 1.9 ng/mL (0-4.0) 02/09/18 04:37 CK/CKMB % Calc 0.2 % (<4) 02/09/18 04:37 Troponin I < 0.02 ng/mL (0-1.5) 02/09/18 04:37 Total Protein 6.0 g/dL (6.4-8.2) L 02/10/18 05:17 Albumin 2.6 g/dL (3.4-5.0) L 02/10/18 05:17 Globulin 3.4 g/dL (2.5-4.5) 02/10/18 05:17 Albumin/Globulin Ratio 0.8 Ratio (1.1-2.1) L 02/10/18 05:17 Influenza Type A (PCR) Negative (NEGATIVE) 02/04/18 15:26 Influenza Type B (PCR) Negative (NEGATIVE) 02/04/18 15:26 - Plan (1) Pneumonia Status: Acute Qualifiers: Pneumonia type: due to unspecified organism Laterality: left Lung location: unspecified part of lung Qualified Code(s): J18.9 - Pneumonia, unspecified organism Plan: PNEUMONIA PROTOCOL WITH IV ANTIBIOTICS AND RESPIRATORY TREATMENTS, SMART VEST, LASIX 20MG IV Q12H, TAMIFLU 75MG PO BID, SOLU-MEDROL 40MG IV TID, CONTINUE TO MONITOR (2) Hypoalbuminemia Status: Acute Plan: ALBUMIN 25% IV DAILY, CONTINUE TO MONITOR
--- NOTE | 2018-03-23 22:41 | DR.CARTERD ---
- Discharge Summary for: Discharge Summary for Date of:: 02/10/18 - Admission Date Date of Admission: 02/04/18 - Admission Diagnoses Admission Diagnosis: (1) Pneumonia (2) Shortness of breath - Discharge Date Discharge Date: 02/10/18 - Discharge Diagnoses Discharge Diagnosis: (1) Pneumonia (2) Shortness of breath (3) Hypoalbuminemia - Hospital Course Hospital Course: MS. MEYER WAS A DIRECT ADMIT FROM OUR OFFICE FOR TREATMENT OF PNEUMONIA. ON DAY TWO, SHE WAS ALERT AND ORIENTED, LYING IN BED ON MORNING ROUNDS. SHE CONTINUED WITH COMPLAINTS OF COUGH, SHORTNESS OF BREATH, FEVER, AND GENERALIZED WEAKNESS. STAFF REPORTED THAT TEMPERATURE REACHED 101.2 THROUGHOUT THE NIGHT. ON EXAMINATION, HEART WAS REGULAR IN RATE AND RHYTHYM. BILATERAL LUNGS WERE NOTED WITH SCATTERED WHEEZING AND RHONCHI THROUGHOUT. ABDOMEN WAS ROUND, SOFT, AND NON-TENDER WITH NORMAL BOWEL SOUNDS NOTED IN ALL QUADRANTS. HER VITALS WERE 101.1-100-20-94%-138/64. LABS WERE OBTAINED. ABNORMAL LAB VALUES INCLUDED THE FOLLOWING: HGB 11.7, HCT 34.5, SODIUM 133, CREATININE 1.05, TOTAL BILIRUBIN 1.20 , ALBUMIN 3.1. SPUTUM AND BLOOD CULTURES WERE PENDING. A CHEST XRAY WAS OBTAINED AND REVEALED: Slight improvement left perihilar infiltrate/ subsegmental atelectasis. WE STARTED TAMIFLU 75MG PO BID. WE CONTINUED IV ANTIBIOTICS AND RESPIRATORY TREATMENTS. DAY THREE, WAS ADMITTED FOR TREATMENT OF PNEUMONIA. SHE WAS ALERT AND ORIENTED, LYING IN BED ON MORNING ROUNDS. SHE REPORTED COMPLAINTS OF INCREASED SHORTNESS OF BREATH, COUGH, FEVER, AND WEAKNESS. SHE CONTINUED WITH FEVER THROUGHOUT THE NIGHT. ON EXAMINATION, HEART WAS REGULAR IN RATE AND RHYTHYM. BILATERAL LUNGS WERE NOTED WITH SCATTERED WHEEZING AND RHONCHI THROUGHOUT. ABDOMEN WAS ROUND, SOFT, AND NON-TENDER WITH NORMAL BOWEL SOUNDS NOTED IN ALL QUADRANTS. HER VITALS WERE 100.1-106-22-92%NC-142/67. LABS WERE OBTAINED. ABNORMAL LAB VALUES INCLUDED THE FOLLOWING: WBC 3.3, HGB 10.3, HCT 30.2, POTASSIUM 3.2, CALCIUM 8.2, TOTAL BILI 1.10, AST 53, TOTAL PROTEIN 6.1, ALBUMIN 2.5. SPUTUM AND BLOOD CULTURES WERE PENDING. A CHEST XRAY WAS OBTAINED AND REVEALED: New right upper lobe density likely representing infiltrate versus subsegmental atelectasis. No change left perihilar infiltrate. WE STARTED SOLU-MEDROL 40MG IV Q8H AND TYLENOL 650MG PO TID. WE CONTINUED IV ANTIBIOTICS AND RESPIRATORY TREATMENTS. DAY FOUR, SHE WAS ALERT AND ORIENTED, LYING IN BED ON MORNING ROUNDS. SHE REPORTED COMPLAINTS OF SHORTNESS OF BREATH, PERSISTENT COUGH, AND WEAKNESS. SHE WAS AFEBRILE THROUGHOUT THE NIGHT. SHE ALSO REPORTED COMPLAINTS OF CONSTIPATION. ON EXAMINATION, HEART WAS REGULAR IN RATE AND RHYTHYM. BILATERAL LUNGS WERE NOTED WITH SCATTERED WHEEZING AND RHONCHI THROUGHOUT. ABDOMEN WAS ROUND, SOFT, AND NON-TENDER WITH NORMAL BOWEL SOUNDS NOTED IN ALL QUADRANTS. HER VITALS WERE 98.7-86-18-92%NC-135/69. LABS WERE OBTAINED. ABNORMAL LAB VALUES INCLUDED THE FOLLOWING: HGB 10.0, HCT 29.1, POTASSIUM 3.3, CREATININE 1.06, GLUCOSE 158, AST 54, ALBUMIN 2.6. SPUTUM AND BLOOD CULTURES WERE PENDING. A CHEST XRAY WAS OBTAINED AND REVEALED: Stable heart size. There is no change in the mild diffuse infiltrates in right upper lobe and left perihilar distribution. No complicating pneumothorax or developing pleural fluid is noted. WE STARTED A BOWEL REGIMEN. DAY FIVE, SHE REPORTED COMPLAINTS OF SHORTNESS OF BREATH, PERSISTENT, PRODUCTIVE COUGH, AND WEAKNESS. SHE DESCRIBED SPUTUM BLOOD TINGED. SHE WAS AFEBRILE THROUGHOUT THE NIGHT, BUT REPORTED THAT HER COUGH WAS WORSENING. SHE CONTINUED TO DENY A BOWEL MOVEMENT. ON EXAMINATION, HEART WAS REGULAR IN RATE AND RHYTHYM. BILATERAL LUNGS WERE NOTED WITH SCATTERED WHEEZING AND RHONCHI THROUGHOUT. ABDOMEN WAS ROUND, SOFT, AND NON-TENDER WITH NORMAL BOWEL SOUNDS NOTED IN ALL QUADRANTS. HER VITALS WERE 98.3-84-20-90%NC-154/70. LABS WERE OBTAINED. ABNORMAL LAB VALUES INCLUDED THE FOLLOWING: RBC 3.27, HGB 9.1, HCT 25.9, GLUCOSE 136, AST 48, TOTAL PROTEIN 6.2, ALBUMIN 2.5. SPUTUM AND BLOOD CULTURES WERE PENDING. A CHEST XRAY WAS OBTAINED AND REVEALED: Bilateral pulmonary infiltrates, with interval increase in the right lung since 2017. WE INCREASED THE FREQUENCY OF MILK OF MAGNESIA. WE CONTINUED IV ANTIBIOTICS AND RESPIRATORY TREATMENTS. DAY SIX, SHE REPORTED COMPLAINTS OF SHORTNESS OF BREATH, PERSISTENT, PRODUCTIVE COUGH THAT WAS WORSENING, AND WEAKNESS. SHE DESCRIBED SPUTUM BLOOD TINGED. SHE REPORTED HAVING A BOWEL MOVEMENT THE DAY BEFORE. ON EXAMINATION, HEART WAS REGULAR IN RATE AND RHYTHYM. BILATERAL LUNGS CONTINUED WITH SCATTERED WHEEZING AND RHONCHI THROUGHOUT. ABDOMEN WAS ROUND, SOFT, AND NON-TENDER WITH NORMAL BOWEL SOUNDS NOTED IN ALL QUADRANTS. HER VITALS WERE 97.8-91-18-91%NC-158/69. LABS WERE OBTAINED. ABNORMAL LAB VALUES INCLUDED THE FOLLOWING: RBC 3.02, HGB 8.3, HCT 24.1, CARBON DIOXIDE 36.0, CALCIUM 8.0, AST 54, TOTAL PROTEIN 5.9, ALBUMIN 2.4. CREATINE KINASE HAS DECREASED FROM 1497 TO 1152. SPUTUM AND BLOOD CULTURES REPORTED NO GROWTH. A CHEST XRAY WAS OBTAINED AND REVEALED: No change right upper, right lower lobe infiltrates. Slight increase left upper lobe infiltrate. Mild cardiomegaly without congestive heart failure. CHEST CT REVEALED: No evidence of pulmonary embolus or thoracic aortic aneurysm. Patchy bilateral ground-glass opacities with more confluent opacities in right upper and left lower lobe regions. There are bilateral pleural effusions which are small. There is bilateral cylindrical bronchiectasis. WE STARTED THE SMART VEST , LASIX 20MG IV Q12H, AND ALBUMIN 25% IV DAILY. WE CONTINUED TO MONITOR PATIENT. DAY SEVEN, NO IMPROVEMENT WAS NOTED IN PATIENT'S CONDITION. DUE TO THE COMPLEX NATURE, WE PLANNED FOR TRANSFER TO [facility]. WE CONTACTED DR. MCKEON, [place], [place], WHO ACCEPTED PATIENT FOR TRANSFER. PATIENT WAS TRANSFERRED IN STABLE CONDITION VIA EMS. - Discharge Medications Discharge Medications: Home Medication List alprazolam [Xanax] 0.5 mg PO BID PRN 02/09/18 [History] Prescriptions: Home medications Folic Acid 1 mg PO DAILY 12/16/12 atenolol 50 mg PO DAILY 12/16/12 gabapentin 300 mg PO HS 07/24/16 levothyroxine 100 mcg PO DAILY 12/01/17 montelukast 10 mg PO HS 12/01/17 pantoprazole 40 mg PO DAILY 12/01/17 aspirin [Ecotrin] 324 mg PO DAILY #30 tab 12/02/17 - Discharge Disposition Discharge Disposition: PATIENT IS TO FOLLOW UP IN OUR OFFICE UPON DISCHARGE FROM [place], [place].
== END 2018-02-10 10:15 | disposition short-term general hospital (02) | DRG 195 ==
LOC: ICU 12:13 → MED/SURG 12:16
PROVIDERS: ADMIT Internal Medicine; ATTEND Internal Medicine
DX: R06.02 Shortness of breath; R53.1 Weakness; K59.09 Other constipation; R07.89 Other chest pain; J18.8 Other pneumonia, unspecified organism; E03.8 Other specified hypothyroidism; I10 Essential (primary) hypertension
CPT/HCPCS: 36415; 36600; 71010; 71020; 71045; 71046; 71260; 74000; 74018; 80053; 82550; 82553; 82803; 83605; 83735; 84484; 85025; 85610; 87040; 87070; 87205; 87502; 93005; 94640; 94669; 94760; A4222; G9035; P9047; J1940; J2405; J2543; J2920; J3480; J3490; J7050; J7620